=== PATIENT | male | born 1965 | race Caucasian/White ===

== ENCOUNTER → 2016-08-28 | Outpatient (CLI) | payer BC | END | disposition home or self-care (01) | LOC: C.LABPVFM 16:06 | PROVIDERS: ATTEND Family Medicine | DX: Z11.59 Encounter for screening for other viral diseases (principal) ==

== ENCOUNTER → 2016-11-24 | Outpatient (CLI) | payer BC ==
[2016-11-24 15:26] LABS: ALT/SGPT 37 U/L (12-78); AST/SGOT 29 U/L (15-37); BLOOD UREA NITROGEN 13 mg/dl (7-18); CALCIUM 8.8 mg/dl (8.5-10.1); CARBON DIOXIDE 24 mmol/L (21-32); CHLORIDE 107 mmol/L (98-107); GLUCOSE 92 mg/dl (70-99); POTASSIUM 3.8 mmol/L (3.5-5.1); SODIUM 138 mmol/L (136-145)
[2016-11-24 15:31] LABS: ALB/GLOB RATIO 1.2 (0.9-2); ALKALINE PHOSPHATASE 87 U/L (45-117); CHOLESTEROL 121 mg/dl (0-200); CHOLESTEROL/HDL RATIO 3.2; HDL CHOLESTEROL 38 mg/dl; LDL CHOLESTEROL CALCULATED 43 mg/dl; PROSTATE SPECIFIC ANTIGEN 0.843 ng/ml (0.000-4.000); TRIGLYCERIDES 200 mg/dl (0-150); VERY LOW DENSITY LIPOPROT CALC 40 mg/dl
== END | disposition home or self-care (01) ==
LOC: C.LABPVFM 08:26
PROVIDERS: ATTEND Neuromusculoskeletal Medicine & OMM
DX: Z00.00 Encounter for general adult medical examination without abnormal findings (principal); E78.1 Pure hyperglyceridemia; I10 Essential (primary) hypertension; Z12.5 Encounter for screening for malignant neoplasm of prostate

== ENCOUNTER 2022-08-23 18:37 | Inpatient (IN) ==
--- NOTE | 2022-08-23 18:52 | ED Triage Note ---
Date of Service August 23, 2022 History of Present Illness This patient was briefly evaluated while in triage. An abbreviated physical exam was performed. This patient is a 57-year-old Male with past medical history of kidney stones and IBS who presents to the ED for evaluation of abdominal pain that started this morning. He states it feels like a cramping, twisting sensation in his colon. Physical Exam VITALS: Vitals are noted on the nurse's note and reviewed by myself. GENERAL: THis is a 57-year-old male, in no acute distress, well-developed well- nourished. SKIN: The skin was without rashes. EYES: Pupils equal round and reactive to light and accommodation. No icterus. MOUTH: Mucous membranes moist. HEART: Regular rate and rhythm without murmurs gallops or rubs. LUNGS: Clear to auscultation bilaterally without wheezes, rales or rhonchi. ABDOMEN: Positive bowel sounds x 4. Mild diffuse tenderness. NEURO: Patient was alert and oriented to person place and time. Initial orders for labs and / or imaging were placed and patient was placed in the waiting area until a bed is available. Please see further documentation for the full ED course. MDM / Impression Impression Impression: Acute pancreatitis, Elevated lactic acid level
[2022-08-23] MEDS ORDERED: DICYCLOMINE HCL 10 MG/ML 2 ML AMP/VIAL IM ONE (19:13)
[2022-08-23] MEDS ORDERED: ONDANSETRON INJ 2 MG/ML 2 ML VIAL IV STA (19:13)
[2022-08-23] MEDS ORDERED: SODIUM CHLORIDE 0.9% 1000ML 1,000 ML IV ONE (19:13)
--- NOTE | 2022-08-23 19:17 | Emergency Department Note ---
History of Present Illness General Chief complaint: Abdominal Pain Stated complaint: ABDOMINAL PAIN Time Seen by Provider: 08/23/22 19:08 History of Present Illness Maximum Pain Intensity: 8 57-year-old male presents emergency department with onset of right upper and left upper quadrant abdominal pain that is crampy in nature that started this morning. Patient does have a history of IBS. Patient denies fever or anorexia. Patient states crampy abdominal pain that is now diffuse in nature. There is no vomiting no diarrhea no fever. There are no other mitigating or alleviating factors Home Medications Medication Instructions Recorded Confirmed Type omega-3 acid ethyl esters 1 gram 1 cap PO DAILY #30 caps 05/06/19 05/03/20 History capsule phenobarbital 16.2 mg tablet 16.2 mg PO DAILY 05/06/19 05/03/20 History amoxicillin 875 mg-potassium 1 tab PO BID #14 tabs 05/03/20 05/03/20 Rx clavulanate 125 mg tablet (Augmentin) lisinopril 40 mg tablet 40 mg PO DAILY #90 tabs 09/14/21 Rx paroxetine HCl 10 mg tablet (Paxil) 10 mg PO DAILY #90 tabs 09/14/21 Rx oxycodone 5 mg tablet 5 mg PO Q6H PRN pain #10 tabs 06/02/22 Rx tamsulosin 0.4 mg capsule (Flomax) 0.4 mg PO DAILY #10 caps 06/02/22 Rx mirtazapine 45 mg tablet 45 mg PO HS #90 tabs 06/12/22 06/12/22 Rx nebivolol 5 mg tablet (Bystolic) 5 mg PO DAILY #90 tabs 06/12/22 06/12/22 Rx Allergies Allergy/AdvReac Type Severity Reaction Status Date / Time cefdinir [From Omnicef] Allergy Unknown Unknown Verified 05/03/20 13:06 hydrochlorothiazide Allergy Unknown nausea Verified 05/03/20 13:06 sulfamethoxazole Allergy Swelling Verified 05/03/20 13:06 [From Bactrim] of Lip/Tongue/Throat trimethoprim [From Bactrim] Allergy Swelling Verified 05/03/20 13:06 of Lip/Tongue/Throat Past Med/Surg History Medical History Benign essential hypertension Depression Essential hypertriglyceridemia Irritable bowel syndrome Smoker SVT (supraventricular tachycardia) Surgical History H/O cardiac radiofrequency ablation H/O foot surgery Family History Father Colorectal cancer Myocardial infarction Denies family history of Ovarian cancer Prostate cancer Breast cancer Social History Smoking Status: Current every day smoker Tobacco Type: Cigarettes Second Hand Exposure: No; Hx Alcohol Use: Yes Alcohol type: beer Hx Substance Use: No Preferred Language: Pashto marital status: Current Living Situation: Alone current occupational status: employed current occupation: [employer] Feels Safe at Home: Yes caffeine: No Dental Care, Regularly: Yes Physical Activity Frequency: Does not Exercise Seatbelt Use: always Sunscreen Use: No Review of Systems A total of 10 systems reviewed and were otherwise negative Constitutional: no fever Gastrointestinal: + abdominal pain; no nausea and no vomiting Physical Exam Vital Signs Vital Signs - 24 hr 08/23/22 18:37 Temperature 34.7 C L Temperature Source Oral Pulse Rate 110 H Respiratory Rate 20 Respiratory Effort / Characteristics Non-Labored Respiratory Depth Normal Blood Pressure 113/81 Blood Pressure Mean 91 Pulse Oximetry 98 Oxygen Delivery Method Room Air Sepsis Recent Fever Within 48 Hours No Sepsis New/Unexplained Change in Mental Status No Sepsis Action Taken by Nursing Adv Provider Notified GENERAL: Patient is awake alert in no acute distress patient is resting comfortably and showing no signs of anxiety EYES: The conjunctivae are clear. The pupils are round and reactive. EARS, NOSE, MOUTH AND THROAT: The nose is without any evidence of any deformity. Mucous membranes are moist. Tongue is midline. NECK: The neck is nontender and supple. RESPIRATORY: Normal respiratory effort is noted there is no evidence of wheezing rhonchi or rales CARDIOVASCULAR: Regular rate and rhythm noted there no murmurs rubs or gallops normal S1 normal S2. GASTROINTESTINAL: The abdomen is soft. Abdomen is nontender. There is no rebound rigidity or guarding; there are normal bowel sounds BACK: No midline tenderness or or step-off noted range of motion in flexion extension as well as rotation no signs of muscle spasm noted MUSCULOSKELETAL/EXTREMITIES: There is no evidence of gross deformity full range of motion is noted in the hips and shoulders. SKIN: There is no obvious evidence of any rash. There are no petechiae, pallor or cyanosis noted. NEUROLOGIC: Patient is awake alert and oriented x3 strength is symmetric PSYCH: Normal affect Course Reevaluation(s) Reevaluation #1: Patient started on IV fluids, was given IV pain medicine is resting in no distress Time: 21:11 Consultations Consultation #1: This case was discussed with the [facility] who accepts patient for admission for pancreatitis rule out sepsis Time: 21:11 Administered Medications Sodium Chloride (Nss 1000ml) 2,000 mls @ 999 mls/hr IV .Q2H1M ONE Stop: 08/23/22 21:47 Last Admin: 08/23/22 20:22 Dose: 999 mls/hr Documented By: KIAN Piperacillin Sod/Tazobactam Sod (Zosyn) 4.5 gm in 120 mls @ 240 mls/hr IV NOW ONE Stop: 08/23/22 21:15 Last Admin: 08/23/22 20:56 Dose: 240 mls/hr Documented By: KIAN Discontinued Medications Dicyclomine HCl (Dicyclomine Hcl 10 Mg/Ml 2 Ml Amp/Vial) 20 mg IM NOW ONE Stop: 08/23/22 19:14 Last Admin: 08/23/22 19:18 Dose: 20 mg Documented By: KIAN Fentanyl Citrate (Fentanyl Citrate 100 Mcg/2 Ml Vial) 50 mcg IV NOW STA Stop: 08/23/22 20:22 Last Admin: 08/23/22 20:25 Dose: 50 mcg Documented By: KARIME Sodium Chloride (Nss 1000ml) 1,000 mls @ 999 mls/hr IV .Q1H1M ONE Stop: 08/23/22 20:13 Last Infusion: 08/23/22 20:25 Dose: 0 mls/hr Documented By: Admin: 08/23/22 19:24 Dose: 999 mls/hr Documented By: KIAN Ioversol (Optiray 350 100ml) 89 ml IV ONCE ONE Stop: 08/23/22 20:11 Last Admin: 08/23/22 20:14 Dose: 89 ml Documented By: MIKAYLA Ondansetron HCl (Ondansetron Inj 2 Mg/Ml 2 Ml Vial) 4 mg IV NOW STA Stop: 08/23/22 19:14 Last Admin: 08/23/22 19:24 Dose: 4 mg Documented By: KIAN Medical Decision Making Medical Records Attestation: I reviewed the patient's medical records. Home Medications Current Medication List: was personally reviewed by me Laboratory Data Attestation: I reviewed the patient's lab results. Labs interpreted by me show an elevated white blood cell count, elevated lactate, elevated lipase 08/23/22 19:13 08/23/22 19:13 Lab Results 08/23/22 08/23/22 08/23/22 Range/Units 19:13 19:13 19:13 WBC 14.29 H (4.8-10.8) K/ul RBC 3.95 L (4.70-6.10) M/uL Hgb 15.3 (14.0-18.0) g/dl Hct 41.7 L (42.0-52.0) % MCV 105.6 H (80.0-100.0) fL MCH 38.7 H (25.0-34.0) pg MCHC 36.7 H (32.0-36.0) g/dL RDW Std Deviation 52.4 H (36.4-46.3) fL RDW Coeff of Edel 13.7 (11.5-14.5) % Plt Count 169 (130-400) K/uL MPV 10.2 (9.4-12.4) fL Immature Gran % (Auto) 0.3 % Neut % (Auto) 88.0 % Lymph % (Auto) 7.8 % [place] % (Auto) 3.5 % Eos % (Auto) 0.1 % Baso % (Auto) 0.3 % Neut # (Auto) 12.58 H (1.40-6.50) K/uL Lymph # (Auto) 1.11 L (1.2-3.4) K/uL [place] # (Auto) 0.50 (0.11-0.59) K/uL Eos # (Auto) 0.01 (0-0.50) K/uL Baso # (Auto) 0.04 (0-0.2) K/uL Immature Gran # (Auto) 0.05 (0.01-0.20) K/uL Sodium 140 (136-145) mmol/L Potassium 4.1 (3.5-5.1) mmol/L Chloride 106 (98-107) mmol/L Carbon Dioxide 21 (21-32) mmol/L Anion Gap 13 H (3-11) BUN 14 (6-23) mg/dl Creatinine 1.24 (0.6-1.4) mg/dl Est Cr Clr Drug Dosing 65.9 ml/min Est GFR ( Amer) 74.3 ml/min Est GFR (Non-Af Amer) 64.1 ml/min BUN/Creatinine Ratio 11.3 (10-20) Glucose 100 H (70-99(Fasting)) mg/dl Lactate 3.1 H* (0.4-2.0) mmol/L Calcium 8.8 (8.5-10.1) mg/dl Total Bilirubin 1.4 H (0.2-1.0) mg/dl AST 91 H (13-39) U/L ALT 43 (7-52) U/L Alkaline Phosphatase 99 (34-104) U/L Troponin I High Sens 7.5 (0-20) pg/ml Total Protein 7.6 (6.0-8.3) gm/dl Albumin 3.9 (3.4-5.0) gm/dl Globulin 3.7 (2.5-4.0) gm/dl Albumin/Globulin Ratio 1.1 (0.9-2) Lipase 923 H (11-82) U/L Imaging Data My Impression: CT reviewed by me and radiologist report appreciated Radiologist's Impression: Abdomen/Pelvis CT 08/23/22 18:52 CT SCAN OF THE ABDOMEN AND PELVIS WITH IV CONTRAST CLINICAL HISTORY: Generalized abdominal pain. Cramping. COMPARISON STUDY: Abdominal CT dated 06/02/2002. TECHNIQUE: Following the IV administration of 89 cc of Optiray 350, CT scan of the abdomen and pelvis is performed from the lung bases to the proximal femora. Images are reviewed in the axial, sagittal, and coronal planes. IV contrast was administered without complication. A dose lowering technique was utilized adhering to the principles of ALARA. CT DOSE: 293.60 mGy.cm FINDINGS: Lung bases: The heart is normal in size and without pericardial effusion. A 4 mm pleural-based nodule at the left lung base is again seen on image #1. There are scattered calcified granulomas. The lung bases are otherwise clear noting bibasilar scarring/atelectasis. There is a small hiatal hernia. Liver: The contrast-enhanced liver is enlarged, measuring 18.3 cm in length. The liver demonstrates diffusely demonstrate attenuation indicating steatosis. Fatty sparing is seen adjacent to the gallbladder fossa. There is no intrahepatic biliary ductal dilatation. The hepatic veins and portal veins are patent. Gallbladder: Unremarkable. Spleen: Normal in size and attenuation. Pancreas: The pancreas is edematous. There is severe peripancreatic inflammation and fluid consistent with acute pancreatitis. The duct is normal in caliber. There is a geographic focus of decreased perfusion within the pancreatic head measuring approximately 2.3 cm as seen on image #200. There is also focally decreased enhancement of the distal pancreatic body seen on image #153. Foci of pancreatic necrosis are not excluded. No organized peripancreatic fluid collection is identified The splenic vein is patent. There is focal narrowing of the superior mesenteric vein on axial image #164. Fluid is seen tracking inferiorly within the retroperitoneal space. Adrenal glands: Unremarkable. Kidneys: The contrast enhanced kidneys are normal in size and without hydronephrosis. The kidneys enhance symmetrically. There is a punctate nonobstructing left renal calculus. Abdominal vasculature: The abdominal aorta is normal in course and caliber noted is mild atherosclerotic calcification. Bowel: There is no bowel obstruction. The appendix is well-visualized and normal. Wall thickening, edema, and hyperemia of the duodenum is related to adjacent pancreatitis. Peritoneum: No intraperitoneal free air is identified. Trace fluid is tracking along the mesentery and there is also trace pelvic ascites. A fat-containing umbilical hernia is noted. Lymphadenopathy: None. Pelvic viscera: The bladder, prostate gland is enlarged and heterogeneous. The bladder is normal as visualized. There are bilateral fat-containing inguinal hernias. Fluid is seen within the left inguinal hernia. Skeletal structures: No lytic or blastic lesions are seen. IMPRESSION: 1. Severe acute pancreatitis. 2. There are foci of diminished enhancement within the pancreatic head as well as the distal pancreatic body. These are suspicious for pancreatic necrosis. 3. No organized peripancreatic fluid collection is identified. 4. Hepatomegaly and hepatic steatosis. 5. Wall thickening, edema, and hyperemia of the duodenum is related to adjacent pancreatitis. 6. Left-sided nephrolithiasis. 7. Additional findings as above. ACT 112: Negative or not required by law. Electronically signed by: Ryan Welsh M.D. 08/23/2022 8:39 PM [facility] Narrative Medical decision making differential diagnosis includes gastritis gastroenter itis colitis bowel obstruction exacerbation of IBS dehydration appendicitis Plan is to check labs, CT, give IV fluids and medications External medical records reviewed and appreciated Nursing notes were reviewed and appreciated Patient had an elevated white blood cell count elevated lactate, elevated lipase, the concern is for severe pancreatitis with sepsis, the patient was started on a 30 mL/kg IV bolus of saline, the patient was given IV Zofran, Bentyl IM and IV fentanyl, was also empirically started on IV Zosyn Patient is at high risk for intra-abdominal process and septic shock, the patie nt will be admitted to the hospitalist Impression & Plan Acute pancreatitis, Elevated lactic acid level Discharge Plan Visit Data Chief Complaint: Abdominal Pain Stated Complaint: ABDOMINAL PAIN ED Provider: Elias Green Discharge Problem: Acute pancreatitis, Elevated lactic acid level Patient Disposition: Admitted As Inpatient Forms Stand Alone Forms: My [facility] Prescriptions Prescriptions: No Action lisinopril 40 mg tablet 40 mg PO DAILY Qty: 90 3RF paroxetine HCl [Paxil] 10 mg tablet 10 mg PO DAILY Qty: 90 3RF amoxicillin-pot clavulanate [Augmentin] 875-125 mg tablet 1 tab PO BID Qty: 14 0RF omega-3 acid ethyl esters 1 gram capsule 1 cap PO DAILY Qty: 30 phenobarbital 16.2 mg tablet 16.2 mg PO DAILY Label Comments: as directed mirtazapine 45 mg tablet 45 mg PO HS Qty: 90 1RF Bystolic 5 mg tablet 5 mg PO DAILY Qty: 90 1RF oxycodone 5 mg tablet 5 mg PO Q6H PRN (Reason: pain) Qty: 10 0RF tamsulosin [Flomax] 0.4 mg capsule 0.4 mg PO DAILY Qty: 10 0RF Hold Instructions: no longer need it Referrals Referrals: Izzy Damon MD [Primary Care Provider] -
[2022-08-23 19:38] LABS: Basophils # (auto) 0.04 K/uL (0-0.2); Basophils % (auto) 0.3 %; Eosinophils # (auto) 0.01 K/uL (0-0.50); Eosinophils % (auto) 0.1 %; Hematocrit (blood only) 41.7 % (42.0-52.0); Hemoglobin 15.3 g/dl (14.0-18.0); Immature Granulocytes # (auto) 0.05 K/uL (0.01-0.20); Immature Granulocytes % (auto) 0.3 %; Lymphocytes # (auto) 1.11 K/uL (1.2-3.4); Lymphocytes % (auto) 7.8 %; Mean Corpuscular Hemoglobin 38.7 pg (25.0-34.0); Mean Corpuscular Hgb Conc 36.7 g/dL (32.0-36.0); Mean Corpuscular Volume 105.6 fL (80.0-100.0); Mean Platelet Volume 10.2 fL (9.4-12.4); Monocytes % (auto) 3.5 %; Neutrophils # (auto) 12.58 K/uL (1.40-6.50); Platelet Count 169 K/uL (130-400); RDW Coefficient of Variation 13.7 % (11.5-14.5); RDW Standard Deviation 52.4 fL (36.4-46.3); Red Blood Count 3.95 M/uL (4.70-6.10); White Blood Count 14.29 K/ul (4.8-10.8)
[2022-08-23] MEDS ORDERED: SODIUM CHLORIDE 0.9% 1000ML 2,000 ML IV ONE (19:47)
[2022-08-23 19:55] LABS: BUN Creatinine Ratio 11.3 (10-20); Calcium 8.8 mg/dl (8.5-10.1); Creatinine Clr Calc Pharmacy 65.9 ml/min; Est GFR (African American) 74.3 ml/min; Est GFR (Non-African American) 64.1 ml/min; Potassium 4.1 mmol/L (3.5-5.1)
[2022-08-23 20:02] LABS: Troponin I High Sensitivity 7.5 pg/ml (0-20)
[2022-08-23] MEDS ORDERED: OPTIRAY 350 100ml IV ONE (20:10)
[2022-08-23] MEDS ORDERED: fentaNYL citrate 100 MCG/2 ML VIAL IV STA ×2 (20:21→21:23)
[2022-08-23 20:25] LABS: Albumin Globulin Ratio 1.1 (0.9-2); Albumin Level 3.9 gm/dl (3.4-5.0); Bilirubin,Total 1.4 mg/dl (0.2-1.0); Globulin 3.7 gm/dl (2.5-4.0); Total Protein 7.6 gm/dl (6.0-8.3)
--- NOTE | 2022-08-23 20:41 | CT Scan Report ---
CT SCAN OF THE ABDOMEN AND PELVIS WITH IV CONTRAST CLINICAL HISTORY: Generalized abdominal pain. Cramping. COMPARISON STUDY: Abdominal CT dated 06/02/2002. TECHNIQUE: Following the IV administration of 89 cc of Optiray 350, CT scan of the abdomen and pelvi s is performed from the lung bases to the proximal femora. Images are reviewed in the axial, sagittal , and coronal planes. IV contrast was administered without complication. A dose lowering technique wa s utilized adhering to the principles of ALARA. CT DOSE: 293.60 mGy.cm FINDINGS: Lung bases: The heart is normal in size and without pericardial effusion. A 4 mm pleural-based nodule at the left lung base is again seen on image #1. There are scattered calcified granulomas. The lung bases are otherwise clear noting bibasilar scarring/atelectasis. There is a small hiatal hernia. Liver: The contrast-enhanced liver is enlarged, measuring 18.3 cm in length. The liver demonstrates d iffusely demonstrate attenuation indicating steatosis. Fatty sparing is seen adjacent to the gallblad jacob fossa. There is no intrahepatic biliary ductal dilatation. The hepatic veins and portal veins are patent. Gallbladder: Unremarkable. Spleen: Normal in size and attenuation. Pancreas: The pancreas is edematous. There is severe peripancreatic inflammation and fluid consistent with acute pancreatitis. The duct is normal in caliber. There is a geographic focus of decreased per fusion within the pancreatic head measuring approximately 2.3 cm as seen on image #200. There is also focally decreased enhancement of the distal pancreatic body seen on image #153. Foci of pancreatic n ecrosis are not excluded. No organized peripancreatic fluid collection is identified The splenic vein is patent. There is focal narrowing of the superior mesenteric vein on axial image #164. Fluid is se en tracking inferiorly within the retroperitoneal space. Adrenal glands: Unremarkable. Kidneys: The contrast enhanced kidneys are normal in size and without hydronephrosis. The kidneys enh ance symmetrically. There is a punctate nonobstructing left renal calculus. Abdominal vasculature: The abdominal aorta is normal in course and caliber noted is mild atherosclero tic calcification. Bowel: There is no bowel obstruction. The appendix is well-visualized and normal. Wall thickening, e marylu, and hyperemia of the duodenum is related to adjacent pancreatitis. Peritoneum: No intraperitoneal free air is identified. Trace fluid is tracking along the mesentery an d there is also trace pelvic ascites. A fat-containing umbilical hernia is noted. Lymphadenopathy: None. Pelvic viscera: The bladder, prostate gland is enlarged and heterogeneous. The bladder is normal as v isualized. There are bilateral fat-containing inguinal hernias. Fluid is seen within the left inguina l hernia. Skeletal structures: No lytic or blastic lesions are seen. IMPRESSION: 1. Severe acute pancreatitis. 2. There are foci of diminished enhancement within the pancreatic head as well as the distal pancreat ic body. These are suspicious for pancreatic necrosis. 3. No organized peripancreatic fluid collection is identified. 4. Hepatomegaly and hepatic steatosis. 5. Wall thickening, edema, and hyperemia of the duodenum is related to adjacent pancreatitis. 6. Left-sided nephrolithiasis. 7. Additional findings as above. ACT 112: Negative or not required by law. Electronically signed by: Ryan Welsh M.D. 08/23/2022 8:39 PM
[2022-08-23] MEDS ORDERED: PIPERACILLIN/TAZOBACTAM 4.5 GM/120 ML BAG IV ONE (20:46)
--- NOTE | 2022-08-23 21:16 | History & Physical Report ---
Date of Service August 23, 2022 Assessment & Plan (1) Acute pancreatitis: Plan: Elias is a 57 year old man w/ PmHx HTN, essential hypertriglyceridemia, IBS, smoker, SVT s/p ablation, kidney stones admitted for hypertriglyceridemia induced pancreatitis. Acute Pancreatitis: -WBC 14.9, electrolytes, renal function WNL, glucose 100, lactate 3.1. -T bili 1.4, AST 91, ALT 43. -CT A&P w/ severe acute pancreatitis, possible necrosis at pancreatic head and distal body. -Ordered US Liver/RUQ to r/o gallstone etiology. -Triglyceride level 1487 - started patient on insulin gtt, D5/0.5NSS w/ 20meq KCl at 75ml/hr per protocol. -Most likely hypertriglyceridemia induced pancreatitis given past history and current levels. -IV Zofran q4h PRN for nausea. Once nausea controlled can start on clear liquid diet. -AM triglycerides ordered. Essential Hypertriglyceridemia: -As above. Patient would benefit from starting fenofibrate after recovery. HTN: -Continue home lisinopril, nebivolol. IBS: -Noted. Continue to monitor Smoker: -Would benefit from counseling for cessation. -Can add nicotine patch if needed. Depression: -Continue paxil, mirtazapine. DVT Prophylaxis: Lovenox 40mg daily. F/E/N/GI: NPO, can advance when nausea under control. Code status: Full code Dispo: PCU/Tele (2) Essential hypertriglyceridemia: (3) Irritable bowel syndrome: (4) Smoker: History of Present Illness Chief Complaint: Abdominal pain Primary Care Provider: Izzy Damon MD Elias is a 57 year old male w/ PmHx HTN, essential hypertriglyceridemia, IBS, smoker, SVT s/p ablation, kidney stones coming into the ED for abdominal pain. Patient states that early in the morning he started to have epigastric pain that was cramping and painful. He states he took an over the counter medication for the pain which helped subside the pain for 1 hour before it came back with a vengeance in that it was stronger. He states the only nausea he's had has been from the cramping feeling itself, no vomiting. He last ate this morning a cold piece of pizza. He states he did not have the pain prior to waking up this morning. He had 2 episodes of pain similar to this previously although not as intense. The first was in April and lasted about two and half days but pain was controlled with analgesics. He had another episode in the interim between April and this episode that was similar to the one in April. He states that when he was home none of the analgesics he tried throughout the day worked for him and so he decided to come in. He has a past history of smoking, smokes 1/2 pack per day for the past 15 years. He drinks one beer 2-3 nights per week and may drink a few sips of a harder alcoholic beverage some days. He was not aware he had a past history of elevated triglycerides as in 2018 in our records he has a triglyceride level of 608. He denies fevers, chest pain, shortness of breath, cough, headache, constipation, vomiting. He had a little bit of diarrhea earli er. In the ED his WBC 14.29, Hgb 15.3, Platelet 169, electrolytes, kidney function WNL, lactate 3.1, glucose 100, T. bili 1.4, AST 91, ALT 43, Lipase 923. A CT A&P was performed which showed severe acute pancreatitis, wall thickening, edema, hyperemia of duodenum related to adjacent pancreatitis; there are foci of diminished enhancement within pancreatic head as well as the distal pancreatic body suspicious for pancreatic necrosis; hepatomegaly and hepatic steatosis. Allergies Allergy/AdvReac Type Severity Reaction Status Date / Time sulfamethoxazole Allergy Severe Swelling Verified 08/23/22 21:18 [From Bactrim] of Lip/Tongue/Throat trimethoprim [From Bactrim] Allergy Severe Swelling Verified 08/23/22 21:18 of Lip/Tongue/Throat cefdinir [From Omnicef] Allergy Unknown Unknown Verified 08/23/22 21:18 hydrochlorothiazide AdvReac Intermediate nausea Verified 08/23/22 21:18 Home Medications Medication Instructions Recorded Confirmed Type phenobarbital 16.2 mg tablet 16.2 mg PO DAILY PRN NEEDED PER 05/06/19 08/23/22 History PT. paroxetine HCl 10 mg tablet (Paxil) 10 mg PO DAILY #90 tabs 09/14/21 08/23/22 Rx oxycodone 5 mg tablet 5 mg PO Q6H PRN pain #10 tabs 06/02/22 08/23/22 Rx mirtazapine 45 mg tablet 45 mg PO HS #90 tabs 06/12/22 08/23/22 Rx nebivolol 5 mg tablet (Bystolic) 5 mg PO DAILY #90 tabs 06/12/22 08/23/22 Rx lisinopril 40 mg tablet 40 mg PO HS 08/23/22 08/23/22 History Past Med/Surg History Medical History Benign essential hypertension Depression Essential hypertriglyceridemia Irritable bowel syndrome Smoker SVT (supraventricular tachycardia) Surgical History H/O cardiac radiofrequency ablation H/O foot surgery Family History Father Colorectal cancer Myocardial infarction Denies family history of Ovarian cancer Prostate cancer Breast cancer Social History Smoking Status: Current every day smoker Tobacco Type: Cigarettes Second Hand Exposure: No; Hx Alcohol Use: Yes Alcohol type: beer Hx Substance Use: No Preferred Language: Mohawk marital status: Current Living Situation: Alone current occupational status: employed current occupation: [employer] Feels Safe at Home: Yes caffeine: No Dental Care, Regularly: Yes Physical Activity Frequency: Does not Exercise Seatbelt Use: always Sunscreen Use: No Review of Systems Review of Systems: As per HPI Physical Exam Constitutional: WD/WN, vitals as above Eyes: PERRL, conjunctivae normal, anicteric sclerae Neck: trachea midline, no thyromegaly Respiratory: normal respiratory effort, lungs clear to auscultation Cardiovascular: Rate/Rhythm: regular rhythm and + tachycardic Heart Sounds: normal S1 and normal S2 Gastrointestinal (Abdomen): BS+, soft, tender to palpation epigastric region, non-distended. Skin: no rashes, warm and dry Psychiatric: A+Ox3, euthymic affect Results & Data Results & Data ([facility]) Vital Signs (Past 12 Hours) Vital Signs Temp Pulse Resp BP Pulse Ox O2 Del Method 08/23/22 18:37 34.7 C L 110 H 20 113/81 98 Room Air Supervising Physician Co-Signing Physician Notes Patient seen and examined, chart reviewed, case discussed with Dr. Lopez and I agree with the assessment and plan as above. In brief, patient is a 57yo male presenting with hypertriglyceride induced pancreatitis. On exam he is afebrile, tachycardic otherwise HD stable +abdominal pain in epigastric area and bilateral flanks. No bruising or abdominal discoloration +S1/S2, regular, no m/r/g Lungs CTA Labs and images reviewed. WBC=14.29, Lactate=3.1, Tbili=1.4, AST=91 Elevated Lipase = 923 Elevated TG = 1487 CT of the abdomen with severe acute pancreatitis Assessment/Plan- 57yo male with hypertriglyceridemia induced pancreatitis. Severe features include elevated WBC count of 14, elevated HR of 110 as well as elevated Lactate level. -Management with insulin drip per protocol for hypertriglyceride induced pancreatitis - dextrose containing fluid -Judicious fluid administration -Pain control and anti-emetics as needed -Repeat triglyceride level in AM and daily - goal <500 -Going forward patient will need to initiate fenofibrate therapy and a low fat diet -Low threshold for MICU transfer should patient worsen -Remainder of plan as above Resident Activity Tracking Resident Involvement: Resident Care Provided Care Provided: Adult Hospital Medicine
[2022-08-23] MEDS ORDERED: MoRPHine SULFATE 2 MG/ML CARP IV STA ×2 (22:27→23:03)
[2022-08-23] MEDS ORDERED: INSULIN REGULAR 250 UNITS in SODIUM CHLORIDE 0.9% 247.5 ML IV SCH (23:00)
[2022-08-24] MEDS: D5W AND 1/2NSS + 20MEQ KCL 20 MEQ/1,000 ML BAG IV SCH ×2 (00:50→09:42)
[2022-08-24] MEDS ORDERED: ONDANSETRON INJ 2 MG/ML 2 ML VIAL IV PRN (01:59)
[2022-08-24] MEDS ORDERED: D5W AND 1/2NSS 1,000 ML IV SCH (01:59)
[2022-08-24] MEDS ORDERED: ACETAMINOPHEN 325 MG TAB PO PRN (01:59)
[2022-08-24] MEDS: MoRPHine SULFATE 4 MG/ML 1 ML CARP\\VIAL IV PRN ×5 (02:59→21:50)
[2022-08-24] MEDS: DEXTROSE 50% 50 ML SYRINGE IV PRN ×4 (03:02→16:00)
[2022-08-24 03:29] LABS: Appearance Urine Clear (Clear); Bacteria Urine Automated Negative (Negative); Blood Urine Trace (Negative); Color Urine Dark Yellow; Epithelial Cell Urine Auto >30 /lpf (0-5); Glucose Urine UA Negative (Negative); Ketones Urine Trace (Negative); Leukocyte Esterase Urine Trace (Negative); Nitrite Urine Positive (Negative); Protein Urine 2+ (Negative); RBC Urine Automated 0-4 /hpf (0-4); Specific Gravity Urine > 1.045 (1.000-1.030); Urobilinogen Urine Negative (Negative)
--- NOTE | 2022-08-24 03:45 | Billing Data ---
Date of Service August 23, 2022 Coding Level of Care Code 08231 INT INP/OBS CARE
[2022-08-24 03:58] LABS: Bilirubin Urine 2+ (Negative)
[2022-08-24] MEDS: MoRPHine SULFATE 2 MG/ML CARP IV PRN (04:51)
[2022-08-24] MEDS ORDERED: DEXTROSE 10% 1,000 ML IV SCH (06:15)
[2022-08-24 06:34] LABS: Hematocrit (blood only) 41.6 % (42.0-52.0); Mean Corpuscular Hemoglobin 37.8 pg (25.0-34.0); Mean Corpuscular Hgb Conc 36.1 g/dL (32.0-36.0); Mean Corpuscular Volume 104.8 fL (80.0-100.0); Mean Platelet Volume 10.5 fL (9.4-12.4); Platelet Count 119 K/uL (130-400); RDW Coefficient of Variation 13.9 % (11.5-14.5); RDW Standard Deviation 53.5 fL (36.4-46.3); Red Blood Count 3.97 M/uL (4.70-6.10); White Blood Count 9.89 K/ul (4.8-10.8)
[2022-08-24 06:41] LABS: Anion Gap 10 (3-11); BUN Creatinine Ratio 9.4 (10-20); Blood Urea Nitrogen 14 mg/dl (6-23); Calcium 7.5 mg/dl (8.5-10.1); Carbon Dioxide 19 mmol/L (21-32); Chloride 111 mmol/L (98-107); Creatinine Clr Calc Pharmacy 54.9 ml/min; Est GFR (African American) 59.5 ml/min; Est GFR (Non-African American) 51.4 ml/min; Glucose 66 mg/dl (70-99(Fasting)); Sodium 140 mmol/L (136-145); Triglycerides 795 mg/dl (0-150)
--- NOTE | 2022-08-24 06:54 | Ultrasound Report ---
US liver CLINICAL HISTORY: Pancreatitis, question of gallstone origin COMPARISON STUDY: CT of the abdomen and pelvis August 23, 2022. FINDINGS: Hepatic echogenicity is increased. There is no biliary ductal dilatation. The common bile d uct measures 4 mm in caliber. No gallstones are noted. There is no gallbladder wall thickening. Compl ex pericholecystic fluid is noted. This is likely related to acute pancreatitis. Peripancreatic fluid is noted as well as suspected sites of pancreatic necrosis which are better depicted on CT of Febr2022. No well-defined peripancreatic fluid collection is present. There is no right hydronephrosis . A small amount of perihepatic ascites is noted. IMPRESSION: 1. No gallstones or biliary ductal dilatation. 2. Hepatic steatosis. 3. Heterogeneity of the pancreas with peripancreatic fluid consistent with acute pancreatitis, better depicted on CT of August 23, 2022. Complex pericholecystic fluid and a small amount of perihepatic ascites, also likely related to pancreatitis. ACT 112: Negative or not required by law. Electronically signed by: Narayan Perez M.D. 08/24/2022 6:52 AM
[2022-08-24 07:04] LABS: Basophils # (auto) 0.02 K/uL (0-0.2); Basophils % (auto) 0.2 %; Immature Granulocytes # (auto) 0.04 K/uL (0.01-0.20); Immature Granulocytes % (auto) 0.4 %; Monocytes # (auto) 0.32 K/uL (0.11-0.59); Monocytes % (auto) 3.2 %; Neutrophils # (auto) 9.11 K/uL (1.40-6.50); Neutrophils % (auto) 92.2 %
[2022-08-24] MEDS ORDERED: METOPROLOL TARTRATE 25 MG TAB PO SCH (09:00)
[2022-08-24] MEDS ORDERED: ENOXAPARIN INJ 40 MG/0.4 ML SYR SQ SCH (09:00)
[2022-08-24] MEDS: POTASSIUM CHLORIDE / WTR 10 MEQ/100 ML PLCT IV SCH ×4 (09:42→13:58)
[2022-08-24] MEDS: PARoxetine HCL 10 MG TAB PO SCH (09:42)
--- NOTE | 2022-08-24 09:51 | Medical Student Progress Note ---
Date of Service August 24, 2022 Assessment & Plan (1) Acute pancreatitis: Plan: Elias is a 57 year old man w/ PmHx HTN, essential hypertriglyceridemia, IBS, smoker, SVT s/p ablation, kidney stones admitted for resistant abdominal pain aug 23 in pm. (1) Acute pancreatitis: Likely due to high triglycerides which may have be induced through alcohol and phenobarbital combination. -WBC 14.9 aug 23 improved to 9.89; -T bili 1.4, AST 91, ALT 43; monitor q12 hrs -CT A&P w/ severe acute pancreatitis, possible necrosis at pancreatic head and distal body. -US Liver/RUQ r/o gallstone etiology; showed hepatic steatosis. -monitor TG q12h; TG 08/24/2022 700s; -continue monitoring until below 500 -started patient on insulin gtt; D10 75ml/hr; -IV Zofran q4h PRN for nausea. Once nausea controlled can start on clear liquid diet. -morphine sulfate 2 mg iv q3 hr prn last 5AM Essential Hypertriglyceridemia: -As above. Patient would benefit from starting fenofibrate after recovery; -currently using insulin drip until TG levels reach below 500; HTN: -Continue home lisinopril 40mg, nebivolol hold. -substitute with metoprolol tartrate 25mg bid po IBS: -Noted. Continue to monitor -Trial H2 bethanie: famotidine 20mg iv daily Monitor for Alcohol withdrawal symptoms -pt drinks regularly, monitor -thiamine hcl 100mg/folic acid 1 mg in nacl 1011 ml @ 500 ml/hr iv Smoker: -Would benefit from counseling for cessation. -Can add nicotine patch if needed; pt did not desire one Depression: -Continue paxil 10mg po daily; pt able to take. Potassium regulation -monitor bmp q12h -Q8H K+ 20 meq iv while receiving regular insulin drip -K+ 3.5: 08/24/2022; treated with additional bolus of KCl 10mg iv x2; DVT Prophylaxis: Lovenox 40mg daily. F/E/N/GI: NPO, can advance when nausea under control. -d5 in normal saline: 125 ml /hr Code status: Full code Dispo: Med/Surg Admission and Anticipated Discharge Date Admission Date: August 23, 2022 Supervising Attestation Medical Student Supervision Note: I was personally present during medical student patient encounter and independently interviewed and examined the patient and verified the butler history and physical, reviewed labs and image studies, discussed the case with Chris Stevens and agree with the findings and care plan. 57 y/o M here with abdominal pain and diagnosed with acute pancreatitis His abdominal pain persists all across his abdomen and feels nauseous with bending forward. no chest pain, shortness of breath. o/e - in distress from pain. worse with any movement.diaphoretic heart - regular, lung - clear with limited air movement in lower lung field abd - diminished bowel sounds, tenderness across abdomen, + guarding. Acute pancreatitis - sec to hypertriglyceridemia in setting of Risky alcohol use/AUD. NPO, Aggressive fluid resuscitation, pain control, zofran for nausea, famotidine. IV zosyn. follow cbc, cmp Hypertriglyceridemia - started on insulin drip in ED. continue with goal to stop once TG below 500. K replacement added. Will need fibrates once stable Concern of AUD - on AWSS protocol. suspects he was self medicating with phenobarb when off alcohol for abdominal pain at home. MVI. HTN - lisinopril and b bethanie Anxiety - paroxetine and mirtazapine. ? prn phenobarb IBS - has been on librax in the past. follow. Subjective 57 yo male hx of ibs, cardiac ablation, high TGs who presenting to the ED due to abdominal pain resistant to oxycodeine, advil, phenobarbitol and warm compresses. It started in the AM when waking up yesterday and tried decided to go to the ER around 4:30PM. Pt was treated with IV fluids, insulin, D5/D10, potassium, ondansetron, and morphine. Liver US neg for cholelithiasis positive for hepatic steatosis. CT a/p with contrast positive for pancreatic necrosis and hepatic steatosis without any detection of biliary tree abnormalities. Now the patient still feels in pain with a constant 5/10 in the epigastric region and 10/10 if exerting himself. Pt is not nauseous currently, however felt he might vomit if he breaths too deeply as there is some pleuritic chest pain. No blood in stool or urine. Pt is able to drink sips of fluid but he is NPO. Pt has 3-4 drinks per day and has also taken phenobarbital though not everyday. No tremors, confusion, seizures, hallucination Physical Exam Constitutional: Appears uncomfortable, diaphoretic Respiratory: CTA b/l; shallow breathing; Cardiovascular: RRR no MRG, no carotid bruits, no leg edema Gastrointestinal (Abdomen): hypoactive bowel sounds; pain to palpation in epi gastric; mild pain to palpation on the LUQ; skin appears normal wo scars, bruises, or redness Results & Data ([facility]) Vital Signs (Past 12 Hours) Vital Signs Pulse Resp BP Pulse Ox O2 Del Method 08/24/22 07:30 100 H 16 132/95 99 Room Air 08/24/22 03:28 110 H 18 126/88 94 Room Air 08/24/22 02:13 104 H 20 163/120 H 95 Room Air 08/23/22 22:00 104 H 24 141/109 H 96 Room Air
[2022-08-24] MEDS ORDERED: Ativan IV Alcohol Withdrawal--Active Protocol IV PRN (10:16)
[2022-08-24] MEDS ORDERED: LORazepam 2 MG/1 ML VIAL IV PRN ×3 (10:16)
[2022-08-24] MEDS ORDERED: FAMOTIDINE 20 MG in SYRINGE 3 ML IV SCH (10:30)
[2022-08-24] MEDS ORDERED: MULTI-VITAMIN INFUSION 10 ML, THIAMINE HCL 100 MG, FOLIC ACID 1 MG in SODIUM CHLORIDE 0... IV ONE (10:45)
[2022-08-24] MEDS ORDERED: D5NSS + 20MEQ KCL 20 MEQ/1,000 ML BAG IV SCH (12:00)
[2022-08-24] MEDS: FAMOTIDINE 20 MG in SYRINGE 3 ML IV SCH (12:17)
--- NOTE | 2022-08-24 12:31 | Electrocardiogram Report ---
Test Reason : Blood Pressure : / mmHG Vent. Rate : 094 BPM Atrial Rate : 094 BPM P-R Int : 140 ms QRS Dur : 078 ms QT Int : 378 ms P-R-T Axes : 048 012 066 degrees QTc Int : 472 ms Poor data quality, interpretation may be adversely affected Normal sinus rhythm Diffuse Minor Nonspecific ST abnormality Abnormal ECG No previous ECGs available Confirmed by Golden Simons ([id number]) on 08/24/2022 12:31:24 PM Referred By: REFERRED SELF Confirmed By:Golden Simons
[2022-08-24 16:40] LABS: Magnesium 1.6 mg/dl (1.7-2.4)
[2022-08-24 17:04] LABS: Albumin Level 3.4 gm/dl (3.4-5.0); BUN Creatinine Ratio 10.3 (10-20); Bilirubin Direct 2.1 mg/dl (0-0.2); Bilirubin,Total 4.1 mg/dl (0.2-1.0); Calcium 7.7 mg/dl (8.5-10.1); Creatinine Clr Calc Pharmacy 40.1 ml/min; Est GFR (African American) 40.7 ml/min; Est GFR (Non-African American) 35.1 ml/min; Total Protein 6.5 gm/dl (6.0-8.3)
[2022-08-24] MEDS ORDERED: LACTATED RINGER'S 1,000 ML IV SCH (17:30)
--- NOTE | 2022-08-24 18:18 | Billing Data ---
Date of Service August 24, 2022 Coding Level of Care Code INP/OBS CONSULT LVL 5, 80 MIN
--- NOTE | 2022-08-24 18:19 | Critical Care Consultation ---
Date of Consultation August 24, 2022 Assessment & Plan (1) Acute pancreatitis: Elias is a 57 year old male w/ PMHx HTN, essential hypertriglyceridemia, IBS, tobacco use, SVT s/p ablation, and kidney stones presented with abdominal pain and nausea found to have severe pancreatitis likely in the setting of alcohol use and TRGs >1400 admitted for medical management of pancreatitis. Critical care consulted as patient having worsening laboratory values (up trending bilirubin, AST, and Cr), abdominal pain, hypotension, and hematochezia x1. NEURO: Alert and oriented. Patient has a significant drinking history. Consumes 4-5 shots of a liquor a day. On alcohol withdrawal protocol. Thiamine HCl 100mg/folic acid 1 mg in nacl 1011 ml @ 500 ml/hr IV. Monitor for signs of withdrawal PSYCH: Patient has a history of depression - stable on Paxil 10 mg. Patient also on mirtazapine 45 mg at home. Continue home meds. RESP: Satting well on RA. Incentive spirometry. Patient is a long time smoker, at least 8 pack year history. Currently smoking 1/2 ppd. Encourage cessation. CV/VASCULAR: Hypotensive episode - patient had 1 episode of hypotension. Hold home BP meds in the setting of hypotension. Adjust fluids based on BP and fluid status. Continue to monitor. Hypertriglyceridemia - 1400s at time of admit. Improved to <500 on insulin gtt. Will d/c drip at this time. Would benefit from fenofibrate after recovery. Outpatient lipid panel recommended - may need statin therapy. RENAL/LYTES: MARI - Cr 1.24 on admit, now 2.04 despite aggressive fluid resuscitation, continue to monitor Potassium level - monitored closely and repleted as needed while on insulin drip. AM BMP ENDO: Hypoglycemia in the setting of insulin gtt. Drip has be discontinued. Will continue to monitor. Hypoglycemia protocol in place. GI/HPB Acute Pancreatitis - likely a mixed picture with elevated TRGs, heavy alcohol use, and phenobarbital use. CT A&P showed severe acute pancreatitis, possible necrosis at pancreatic head and distal body. US did not show gallstones, did show hepatic steatosis. Patient started on insulin gtt with D10 at 75 mL/hr as TRGs in the >1400 with significant improvement in TRGs levels. Patient's bilir ubin is up-trending along with Cr and AST. Continue to monitor. Zofran PRN for nausea. Pain control with morphine. Elevated bilirubin - up-trending, 1.4 on admission, now 4.1 Transaminitis - up-trending, AST elevated to 91, now 121 IBS - continue to monitor, trial famotidine 20 mg IV daily : Rodriguez in place, Strict Is and Os. ID: Leukocytosis - 14.9 on admit, now resolved, continue to monitor Patient s/p Zosyn x1, no need for abx at this time HEME/ONC: no acute process DVT Prophylaxis: Lovenox 40mg daily. F/E/N/GI: NPO, can advance when nausea under control. LR @ 125 mL/hr Code status: Full code Dispo: Med/Surg Supervising Physician Co-Signing Physician Notes Was the resident-physician during care of patient. I separately evaluated patient for butler portions of the history and the exam. I was present during the critical portion of medical decision making, and I discussed the case with the resident. I generally agree with the findings and plan except for any additions/exceptions noted. 57-year-old male with past medical history of alcohol abuse presented to the hospital with complaints of abdominal pain. Patient does have history of bouts of pancreatitis in the past. He also has IBS He was found to have severe necrotizing pancreatitis along with severely elevated triglycerides greater than 1400 Patient was started on insulin drip as well as D10. He had 1 bout of hypotension as well as hypoglycemia. ICU was consulted because of acidosis as well as worsening creatinine At the time of examination patient's blood pressure was in the 120s systolic, heart rate in the high 80s. He complained of abdominal pain but was not in any respiratory distress. Saturating 94-95% on room air He was making urine. Denies any chest pain denies any shortness of breath. Was complaining of na usea. Asking if he could drink something Constitutional: No acute distress HEENT: EOMI, PERRLA Respiratory system: Decreased air entry bilaterally, no wheeze, rhonchi, positive crackles bilateral lower lobes CVS: S1-S2 positive, no murmurs or gallops Abdomen: Soft, nondistended, positive epigastric as well as right upper quadrant tenderness, no rebound, positive bowel sounds x4 Extremities: +2 pulses bilaterally radialis/ dorsalis pedis, no cyanosis, no edema Neuro: Awake alert oriented x3 Psych: Normal mood and affect G/U: No Rodriguez --Prophylaxis VTE: Lovenox GI: Pepcid Lines: Peripheral Diet: N.p.o. Plan: Patient has a severe necrotizing pancreatitis. Belly is not that tense. He did get 5 L of fluid so far since coming to the hospital. Oxygenation dang he is doing good. Was saturating well on room air Consideration of Rodriguez catheter to monitor intra-abdominal pressure can be made although the bili is not that tense Continue with LR at 125 mill an hour. Monitor BUNs/creatinine Avoid nephrotoxic medication I will hold patient's blood pressure medication as he had an episode of low blood pressure Patient has history of heavy alcohol use, 5 shots of dionna on a daily basis. Continue with CIWA protocol I do not think patient needs ICU care right now. I will continue following the patient on the floor. If there is any worsening I will take him to the ICU Case was discussed with primary team Please note the above document was generated using voice recognition software. It may contain grammatical, syntax or spelling errors.Any formal questions or concerns about the content, text or information contained within the body of this dictation should be directly addressed to the provider for clarification. History of Present Illness Reason for Consultation: Pancreatitis Requesting Physician: Elizabeth Soares MD Attending Physician: Dr. Mancuso History of Present Illness Elias is a 57 year old male w/ PMHx HTN, essential hypertriglyceridemia, IBS, tobacco use, SVT s/p ablation, kidney stones coming into the ED for abdominal pain and nausea found to have severe pancreatitis likely in the setting of alcohol use and TRGs >1400. In the ED WBC 14.29, Hgb 15.3, Platelet 169, electrolytes, kidney function WNL, lactate 3.1, glucose 100, T. bili 1.4, AST 91, ALT 43, Lipase 923. A CT A&P was performed which showed severe acute pancreatitis, wall thickening, edema, hyp eremia of duodenum related to adjacent pancreatitis; there are foci of diminished enhancement within pancreatic head as well as the distal pancreatic body suspicious for pancreatic necrosis; hepatomegaly and hepatic steatosis.Patient was admitted to med/surg. Critical care consulted as patient having worsening laboratory values (up trending bilirubin, AST, and Cr), abdominal pain, hypotension, and hematochezia x1. Patient had one episode of hypotension. He has been aggressively fluid resuscitated. Alcohol withdrawal protocol onboard - patient not requiring PRN Ativan. At the bedside patient is non-toxic appearing, mildly uncomfortable with a BP of 122/77. Notes nausea and continued epigastric abdominal pain. He reports having one episode of hematochezia. Patient reports 2 previous episodes of pain in the past that were similar, but not nearly as severe. He has a past history of tobacco use, smokes 1/2 pack per day for the past 15 years. He reports drinking 4-5 shots of liquor a day, occasional wine or beer. No withdrawal symptoms. Allergies Allergy/AdvReac Type Severity Reaction Status Date / Time sulfamethoxazole Allergy Severe Swelling Verified 08/23/22 21:18 [From Bactrim] of Lip/Tongue/Throat trimethoprim [From Bactrim] Allergy Severe Swelling Verified 08/23/22 21:18 of Lip/Tongue/Throat cefdinir [From Omnicef] Allergy Unknown Unknown Verified 08/23/22 21:18 hydrochlorothiazide AdvReac Intermediate nausea Verified 08/23/22 21:18 Home Medications Medication Instructions Recorded Confirmed Type phenobarbital 16.2 mg tablet 16.2 mg PO DAILY PRN NEEDED PER 05/06/19 08/23/22 History PT. paroxetine HCl 10 mg tablet (Paxil) 10 mg PO DAILY #90 tabs 09/14/21 08/23/22 Rx oxycodone 5 mg tablet 5 mg PO Q6H PRN pain #10 tabs 06/02/22 08/23/22 Rx mirtazapine 45 mg tablet 45 mg PO HS #90 tabs 06/12/22 08/23/22 Rx nebivolol 5 mg tablet (Bystolic) 5 mg PO DAILY #90 tabs 06/12/22 08/23/22 Rx lisinopril 40 mg tablet 40 mg PO HS 08/23/22 08/23/22 History Patient History Medical History Benign essential hypertension Depression Essential hypertriglyceridemia Irritable bowel syndrome Smoker SVT (supraventricular tachycardia) Surgical History H/O cardiac radiofrequency ablation H/O foot surgery Family History Father Colorectal cancer Myocardial infarction Denies family history of Ovarian cancer Prostate cancer Breast cancer Social History Smoking Status: Current some day smoker Tobacco Type: Cigarettes Second Hand Exposure: No; Hx Alcohol Use: Yes Alcohol type: beer Hx Substance Use: No Preferred Language: Bahamian Communication Ability: Effective Vending Machine Coin Collector Required: No Beliefs That Will Affect Care: Spiritual marital status: Current Living Situation: Alone current occupational status: employed current occupation: [employer] Feels Safe at Home: Yes caffeine: No Dental Care, Regularly: Yes Physical Activity Frequency: Does not Exercise Seatbelt Use: always Sunscreen Use: No Assistive Devices: Glasses Review of Systems Review of Systems: As per HPI Physical Exam Physical Exam: Gen: comfortable appearing gentleman in NAD HEENT: AT NC, moist mucous membranes Resp: crackles present right lung otherwise CTAB no wheezing CV: RRR no m/r/g, clinically well perfused GI: soft, non-distended, +BS, diffusely tender mostly in the epigastric region Psych: appropriate mood and affect Neuro: awake, alert Results & Data Results & Data ([place]) Vital Signs (Past 12 Hours) Vital Signs Temp Pulse Resp BP Pulse Ox O2 Del Method 08/24/22 17:51 36.6 C 95 H 18 112/77 95 Room Air 08/24/22 16:51 36.9 C 08/24/22 16:31 83 18 108/81 97 Room Air 08/24/22 16:00 89 20 85/64 L 93 Room Air 08/24/22 15:18 94 H 18 109/82 98 Room Air 08/24/22 13:57 105 H 18 128/90 95 Room Air 08/24/22 13:31 102 H 18 120/92 94 Room Air 08/24/22 12:51 99 H 15 120/92 95 Room Air 08/24/22 10:00 111 H 16 100/80 94 Room Air 08/24/22 07:30 100 H 16 132/95 99 Room Air Laboratory Results 08/24/22 15:59 Diagnostic Findings Abdomen/Pelvis CT 08/23/22 18:52 FINDINGS: Lung bases: The heart is normal in size and without pericardial effusion. A 4 mm pleural-based nodule at the left lung base is again seen on image #1. There are scattered calcified granulomas. The lung bases are otherwise clear noting bibasilar scarring/atelectasis. There is a small hiatal hernia. Liver: The contrast-enhanced liver is enlarged, measuring 18.3 cm in length. The liver demonstrates diffusely demonstrate attenuation indicating steatosis. Fatty sparing is seen adjacent to the gallbladder fossa. There is no intrahepatic biliary ductal dilatation. The hepatic veins and portal veins are patent. Gallbladder: Unremarkable. Spleen: Normal in size and attenuation. Pancreas: The pancreas is edematous. There is severe peripancreatic inflammation and fluid consistent with acute pancreatitis. The duct is normal in caliber. There is a geographic focus of decreased perfusion within the pancreatic head measuring approximately 2.3 cm as seen on image #200. There is also focally decreased enhancement of the distal pancreatic body seen on image #153. Foci of pancreatic necrosis are not excluded. No organized peripancreatic fluid collection is identified The splenic vein is patent. There is focal narrowing of the superior mesenteric vein on axial image #164. Fluid is seen tracking inferiorly within the retroperitoneal space. Adrenal glands: Unremarkable. Kidneys: The contrast enhanced kidneys are normal in size and without hydronephrosis. The kidneys enhance symmetrically. There is a punctate nonobstructing left renal calculus. Abdominal vasculature: The abdominal aorta is normal in course and caliber noted is mild atherosclerotic calcification. Bowel: There is no bowel obstruction. The appendix is well-visualized and normal. Wall thickening, edema, and hyperemia of the duodenum is related to adjacent pancreatitis. Peritoneum: No intraperitoneal free air is identified. Trace fluid is tracking along the mesentery and there is also trace pelvic ascites. A fat-containing umbilical hernia is noted. Lymphadenopathy: None. Pelvic viscera: The bladder, prostate gland is enlarged and heterogeneous. The bladder is normal as visualized. There are bilateral fat-containing inguinal hernias. Fluid is seen within the left inguinal hernia. Skeletal structures: No lytic or blastic lesions are seen. IMPRESSION: 1. Severe acute pancreatitis. 2. There are foci of diminished enhancement within the pancreatic head as well as the distal pancreatic body. These are suspicious for pancreatic necrosis. 3. No organized peripancreatic fluid collection is identified. 4. Hepatomegaly and hepatic steatosis. 5. Wall thickening, edema, and hyperemia of the duodenum is related to adjacent pancreatitis. 6. Left-sided nephrolithiasis. 7. Additional findings as above. Liver Ultrasound 08/24/22 01:59 FINDINGS: Hepatic echogenicity is increased. There is no biliary ductal dilatation. The common bile duct measures 4 mm in caliber. No gallstones are noted. There is no gallbladder wall thickening. Complex pericholecystic fluid is noted. This is likely related to acute pancreatitis. Peripancreatic fluid is noted as well as suspected sites of pancreatic necrosis which are better depicted on CT of August 2022. No well-defined peripancreatic fluid collection is present. There is no right hydronephrosis. A small amount of perihepatic ascites is noted. IMPRESSION: 1. No gallstones or biliary ductal dilatation. 2. Hepatic steatosis. 3. Heterogeneity of the pancreas with peripancreatic fluid consistent with acute pancreatitis, better depicted on CT of August 23, 2022. Complex pericholecystic fluid and a small amount of perihepatic ascites, also likely related to pancreatitis. Resident Activity Tracking Resident Involvement: Resident Care Provided Care Provided: [facility]
[2022-08-24] MEDS: LACTATED RINGER'S 1,000 ML IV SCH (18:41)
[2022-08-24 18:44] LABS: Hematocrit (blood only) 39.2 % (42.0-52.0); Hemoglobin 14.1 g/dl (14.0-18.0)
[2022-08-24 20:35] LABS: Hemoglobin 13.7 g/dl (14.0-18.0)
[2022-08-24] MEDS ORDERED: lisinopril 40 MG TAB PO SCH (21:00)
[2022-08-24] MEDS: MIRTAZAPINE SOLTAB 15 MG PO SCH (21:44)
[2022-08-24 23:01] LABS: Appearance Urine Turbid (Clear); Bacteria Urine Automated Negative (Negative); Blood Urine 2+ (Negative); Color Urine Orange; Epithelial Cell Urine Auto >30 /lpf (0-5); Glucose Urine UA Negative (Negative); Ketones Urine Trace (Negative); Leukocyte Esterase Urine 1+ (Negative); Nitrite Urine Positive (Negative); Protein Urine 2+ (Negative); RBC Urine Automated 0-4 /hpf (0-4); Specific Gravity Urine 1.036 (1.000-1.030); Urobilinogen Urine Negative (Negative); WBC Urine Automated >30 /hpf (0-5)
[2022-08-24 23:02] LABS: Bilirubin Urine 2+ (Negative)
[2022-08-24 23:30] LABS: Potassium Random Urine 105.6 mmol/L
[2022-08-25 01:43] LABS: Hematocrit (blood only) 36.5 % (42.0-52.0); Hemoglobin 12.8 g/dl (14.0-18.0)
[2022-08-25] MEDS: LACTATED RINGER'S 1,000 ML IV SCH ×4 (02:37→20:00)
[2022-08-25] MEDS: MoRPHine SULFATE 4 MG/ML 1 ML CARP\\VIAL IV PRN ×2 (04:33→20:06)
[2022-08-25 06:36] LABS: Hematocrit (blood only) 34.9 % (42.0-52.0); Hemoglobin 12.6 g/dl (14.0-18.0)
[2022-08-25 06:55] LABS: Albumin Level 3.2 gm/dl (3.4-5.0); Bilirubin Direct 1.6 mg/dl (0-0.2); Bilirubin,Total 3.4 mg/dl (0.2-1.0); Calcium 7.7 mg/dl (8.5-10.1); Potassium 4.2 mmol/L (3.5-5.1)
[2022-08-25 07:05] LABS: Hematocrit (blood only) 34.4 % (42.0-52.0); Hemoglobin 12.2 g/dl (14.0-18.0); Mean Corpuscular Hemoglobin 37.8 pg (25.0-34.0); Mean Corpuscular Hgb Conc 35.5 g/dL (32.0-36.0); Mean Corpuscular Volume 106.5 fL (80.0-100.0); Mean Platelet Volume 10.9 fL (9.4-12.4); Platelet Count 89 K/uL (130-400); RDW Coefficient of Variation 14.6 % (11.5-14.5); RDW Standard Deviation 57.1 fL (36.4-46.3); Red Blood Count 3.23 M/uL (4.70-6.10); White Blood Count 8.94 K/ul (4.8-10.8)
[2022-08-25 07:11] LABS: BUN Creatinine Ratio 11.4 (10-20); Est GFR (African American) 28.8 ml/min; Est GFR (Non-African American) 24.8 ml/min; Total Protein 6.1 gm/dl (6.0-8.3)
[2022-08-25 07:20] LABS: Basophils # (auto) 0.02 K/uL (0-0.2); Basophils % (auto) 0.2 %; Eosinophils # (auto) 0.02 K/uL (0-0.50); Eosinophils % (auto) 0.2 %; Immature Granulocytes # (auto) 0.05 K/uL (0.01-0.20); Immature Granulocytes % (auto) 0.6 %; Lymphocytes # (auto) 0.87 K/uL (1.2-3.4); Lymphocytes % (auto) 9.7 %; Monocytes % (auto) 5.6 %; Neutrophils # (auto) 7.48 K/uL (1.40-6.50); Neutrophils % (auto) 83.7 %
[2022-08-25] MEDS ORDERED: LACTATED RINGER'S 500 ML IV ONE (08:45)
[2022-08-25] MEDS ORDERED: FAMOTIDINE 20 MG in SYRINGE 3 ML IV SCH (09:00)
[2022-08-25] MEDS: FOLIC ACID 1 MG in SYRINGE 9.8 ML IV SCH (09:13)
[2022-08-25] MEDS: FAMOTIDINE 20 MG in SYRINGE 3 ML IV SCH (09:13)
[2022-08-25] MEDS: PARoxetine HCL 10 MG TAB PO SCH (09:14)
[2022-08-25] MEDS: THIAMINE HCL 100 MG in SYRINGE 9 ML IV SCH (09:14)
--- NOTE | 2022-08-25 10:13 | Critical Care Progress Note ---
Date of Service August 25, 2022 Assessment & Plan (1) Acute pancreatitis: Plan: Elias is a 57 year old male w/ PMHx HTN, essential hypertriglyceridemia, IBS, tobacco use, SVT s/p ablation, and kidney stones presented with abdominal pain and nausea found to have severe pancreatitis likely in the setting of alcohol use and TRGs >1400 admitted for medical management of pancreatitis. Critical care consulted as patient having worsening laboratory values (up trending bilirubin, AST, and Cr), abdominal pain, hypotension, and hematochezia x1. NEURO: Heavy alcohol use, 4-5 shots of dionna on a daily basis Continue with CIWA protocol PSYCH: History of depression On Paxil 10 mg. Patient also on mirtazapine 45 mg at home. Continue home meds. RESP: -- Current smoker Approximately [id number] smoking history Importance of quitting explained the patient in depth CV/VASCULAR: --Hypotensive episode patient had 1 episode of hypotension. Hold home BP meds in the setting of hypotension -- Hypertriglyceridemia 1400s at time of admit. Improved to <500 on insulin gtt. Start the patient on fenofibrate Restart insulin with dextrose at the triglycerides are persistently greater than 500 RENAL/LYTES: -- MARI Monitor BUNs/creatinine Avoid nephrotoxic medication ENDO: Hypoglycemia in the setting of insulin gtt. Drip has be discontinued. Will continue to monitor. Hypoglycemia protocol in place. GI: --Acute Pancreatitis - likely a mixed picture with elevated TGs, heavy alcohol use CT A&P showed severe acute pancreatitis, possible necrosis at pancreatic head and distal body. US did not show gallstones, did show hepatic steatosis. Patient started on insulin gtt with D10 at 75 mL/hr as TGs in the >1400 with significant improvement in TGs levels -- Transaminitis with elevated bilirubin Likely alcoholic hepatitis Continue to trend --IBS continue to monitor, trial famotidine 20 mg IV daily : Rodriguez in place, Strict Is and Os. ID: Patient does have necrotizing pancreatitis No indication for antibiotics right now HEME/ONC: no acute process --Prophylaxis VTE: Lovenox GI: Pepcid Lines: Peripheral Diet: N.p.o. okay to have ice chips and water Plan: In/out: +3.8 L, urine output 1453 Patient's creatinine is getting elevated. I think it is a combination of necrotizing pancreatitis on top of the hypotensive episode which the patient had. Transaminitis is also combination of alcohol abuse as well as hypotensive epis ode His bilirubin is trending down. We will continue to trend I will give the patient 500 bolus of LR followed by 150 mm of LR Repeat CMP mag phosphorus at 3 PM Triglycerides are all greater than 500 right now. I will repeat them in 12 hours which will be around 7 PM. If it they are still greater than 500 then I will start the patient on insulin drip with D10 Start the patient on fenofibrate, get CPK baseline Ultrasound of the testes for the fullness in the left groin area. Critical care will continue to follow Case was discussed with Dr. Soares Please note the above document was generated using voice recognition software. It may contain grammatical, syntax or spelling errors.Any formal questions or concerns about the content, text or information contained within the body of this dictation should be directly addressed to the provider for clarification. Admission and Anticipated Discharge Date Admission Date: August 23, 2022 Subjective Patient seen and examined at bedside. No acute distress, no adverse events overnight. Patient's saturation was 93-94% on room air He says he feels the same compared to when I saw him last night. Occasional nausea. Has been having ice chips and water without any issues Has had multiple bowel movements from his underlying IBS which are watery. Has been afebrile. No headache, no dysuria Has been urinating well Review of Systems Review of Systems: All systems reviewed & are unremarkable except as noted in Subjective Physical Exam Physical Exam: Constitutional: No acute distress HEENT: EOMI, PERRLA Respiratory system: Decreased air entry bilaterally, no wheeze, rhonchi, positive crackles bilateral lower lobes CVS: S1-S2 positive, no murmurs or gallops Abdomen: Soft, nondistended, positive epigastric as well as right upper quadrant tenderness, no rebound, positive bowel sounds x4 Extremities: +2 pulses bilaterally radialis/ dorsalis pedis, no cyanosis, no edema Neuro: Awake alert oriented x3 Psych: Normal mood and affect G/U: No Rodriguez, fullness around the left inguinal region. Negative cough test Skin: no rashes, warm and dry Lymphatic: no cervical or axillary lymphadenopathy Results & Data Results & Data ([facility]) Vital Signs (Past 12 Hours) Vital Signs Temp Pulse Pulse Resp BP Pulse Ox O2 Del Method 08/25/22 08:58 36.8 C 102 H 18 124/80 Room Air 08/24/22 22:18 105 H 08/25/22 02:34 37 C 97 H 16 129/74 95 Room Air 08/24/22 23:12 37.0 C 94 H 17 105/83 93 Room Air Laboratory Results 08/25/22 06:24 08/25/22 06:24 Coding Level of Care Code 03442 SUB INP/OBS CARE 3/50MIN Diagnoses Acute pancreatitis K85.90
--- NOTE | 2022-08-25 10:28 | Medical Student Progress Note ---
Date of Service August 25, 2022 Assessment & Plan (1) Acute pancreatitis: Plan: Elias is a 57 year old man w/ PmHx HTN, essential hypertriglyceridemia, IBS, smoker, SVT s/p ablation, kidney stones admitted for resistant abdominal pain aug 23 in pm. (1) Acute pancreatitis: Likely due to high triglycerides which may have be induced through alcohol and phenobarbital combination. Daily CBC w/diff, CMP q12h, TGs q12h -WBC 14.9 aug 23; resolved; -T bili 4.1 downtrending; AST 174 uptrending; ALT: 61; ALP 77 08/25/2022; monitor q12 hrs -albumin 3.2 downtrend 08/25/2022 -CT A&P w/ severe acute pancreatitis, possible necrosis at pancreatic head and distal body. -US Liver/RUQ r/o gallstone etiology; showed hepatic steatosis. -monitor TG q12h; -continue monitoring with goal < 500; -IV Zofran q4h PRN for nausea. Once nausea controlled can start on clear liquid diet. -morphine sulfate 4mg IV prn; improving pain; one dose this morning Essential Hypertriglyceridemia: -As above. Patient would benefit from starting fenofibrate after recovery; -currently using insulin drip until TG levels reach below 500; monitor q12h -recheck TG at 7pm to determine whether to restore insulin ggt with potassium -start fenofibrate: cpk baseline 759; Scrotal Swelling/Inguinal swelling This could be due to pacreatic necrosis and the inflammatory mediators spilling into the scrotum from the retroperitoneal region causig edema. This may happen with necrotizing pancreatitis and inguinal swelling results as well (left pancreatic hydrocele). There is some tenderness to palpation and is discolored as purple. -observe, monitor labs and vitals for signs of infection or SIRS -US of the scrotum and linguinal mass; consider CT A/P Acute Kidney Injury: worsening -FENA: 0.2% = pre-renal; cr = 2.7 -continue lactated ringers 150 ml/hr Elevated Creatine Kinase Could be due to effects of underlying acute pancreatitis and immobilization. -continue treating the acute pancreatitis HTN: -hold lisinopril, nebivolol hold. -substitute with metoprolol tartrate 25mg bid po; hold - IBS: -Noted. Continue to monitor -Trial H2 bethanie: famotidine 20mg iv daily -consider dicyclomine Monitor for Alcohol withdrawal symptoms -pt drinks regularly, monitor -thiamine hcl 100mg/folic acid 1 mg in nacl 1011 ml @ 500 ml/hr iv Lowering Hgb: improving Stopped lovenox, started SCDs for ppx. Pt Hgb improving. CBC w diff q12h. Smoker: -Would benefit from counseling for cessation. -Can add nicotine patch if needed; pt did not desire one Depression: -Continue paxil 10mg po daily; pt able to take. DVT Prophylaxis: Lovenox 40mg daily. F/E/N/GI: NPO, can advance when nausea under control. -Lactated Ringers: 150 ml /hr; Code status: Full code Dispo: Med/Surg Admission and Anticipated Discharge Date Admission Date: August 23, 2022 Supervising Attestation Medical Student Supervision Note: I was personally present during medical student patient encounter and independently interviewed and examined the patient and verified the butler history and physical, reviewed labs and image studies, discussed the case with Chris Stevens and agree with the findings and care plan. Abdominal pain better but still with some pain. diarrhea/loose stools since yesterday. Had hypotensive episode last evening o/e - AAOx3, comfortable in bed Heart - RRR Lungs - CTA, no r/r/w abd - soft, BS diminished, improved tenderness Possible sepsis sec to possible necrosis at pancreatic head and distal body in setting of hypertriglyceridemia induced pancreatitis -Overall symptoms better but worsening of labs with rise in creatinine and LFT Continue IV fluids, NPO, IV abx Monitor labs Hypertriglyceridemia TG level 511 this am Fenofibrate added Acute renal failure Likely from Hypotension last evening from sepsis/SIRS Continue IVF Monitor renal function Elevated LFT Sec to SIRS/sepsis No biliary pathology on CT follow LFT Scrotal swelling Check scrotal US Possibly pancreatic hydrocele IBS Trial bentyl On librax and phenobarb at home AUD Continue AWSS protocol Subjective Today pt feels the same however he is moving around more but pain still constant 4-5/10 and sharp 10/10 when exerting himself but not as much pleuritc chest pain. Has not had BRPR since yesterday and noted he had a hx of internal hemorrhoid. Scrotal swelling, penis swelling, and left sided supra inguinal ligamental swelling. Doesn't hurt very much unless palpated but he is concerned. Physical Exam Constitutional: WD/WN, vitals as above Respiratory: normal respiratory effort, lungs clear to auscultation Cardiovascular: RRR, no murmur, no edema Gastrointestinal (Abdomen): normal bowel sounds, soft, nontender, no hepatosplenomegaly Inspection/Auscultation: abdomen normal to inspection palpation left flank tenderness; LLQ mild tenderness to palpation; some tenderness to palpation epigastric. No bruising Genitourinary: no suprapubic tenderness, no CVA tenderness. Left inguinal mass that is tender with discoloration as well as scrotal swelling that is non tender. Results & Data ([facility]) Vital Signs (Past 12 Hours) Vital Signs Temp Pulse Resp BP Pulse Ox O2 Del Method 08/25/22 08:58 36.8 C 102 H 18 124/80 Room Air 08/25/22 02:34 37 C 97 H 16 129/74 95 Room Air 08/24/22 23:12 37.0 C 94 H 17 105/83 93 Room Air
[2022-08-25] MEDS: FENOFIBRATE NANOCRYSTALLIZED 145 MG TABLET PO SCH (11:35)
--- NOTE | 2022-08-25 11:39 | XRay Report ---
XR chest 1V portable HISTORY: Pancreatitis. Shortness of breath. COMPARISON: Abdomen and pelvis CT 08/23/2022. FINDINGS: No pneumothorax. No pleural effusions. Patchy bibasilar airspace opacities are new from the prior study. There are low lung volumes. The heart is normal in size. No evidence for pulmonary cezar a. The upper lung zones are clear. IMPRESSION: There are new patchy bibasilar airspace opacities. These are nonspecific but may represent atelectasi s given the low lung volumes. A pneumonia could also have a similar appearance in the appropriate cli nical setting. ACT 112: Negative or not required by law. Electronically signed by: Darius Eaton M.D. 08/25/2022 11:37 AM
[2022-08-25] MEDS ORDERED: LACTATED RINGER'S 250 ML IV ONE (12:36)
[2022-08-25 16:29] LABS: Appearance Urine Turbid (Clear); Bacteria Urine Automated Negative (Negative); Blood Urine 3+ (Negative); Color Urine Orange; Epithelial Cell Urine Auto >30 /lpf (0-5); Glucose Urine UA Negative (Negative); Ketones Urine Negative (Negative); Leukocyte Esterase Urine Trace (Negative); Nitrite Urine Positive (Negative); Protein Urine 2+ (Negative); Specific Gravity Urine 1.023 (1.000-1.030); Urobilinogen Urine Negative (Negative)
[2022-08-25 16:30] LABS: Bilirubin Urine 1+ (Negative)
[2022-08-25] MEDS ORDERED: METOPROLOL TARTRATE 25 MG TAB PO SCH (16:45)
[2022-08-25 16:50] LABS: Albumin Level 3.3 gm/dl (3.4-5.0); BUN Creatinine Ratio 14.6 (10-20); Bilirubin,Total 3.1 mg/dl (0.2-1.0); Calcium 8.2 mg/dl (8.5-10.1); Creatinine Clr Calc Pharmacy 29.2 ml/min; Est GFR (African American) 27.8 ml/min; Globulin 3.3 gm/dl (2.5-4.0); Magnesium 1.4 mg/dl (1.7-2.4); Phosphorus 3.2 mg/dl (2.5-4.9); Potassium 3.8 mmol/L (3.5-5.1); Total Protein 6.6 gm/dl (6.0-8.3)
[2022-08-25] MEDS ORDERED: Nursing to Pharmacy Communication SCH (17:15)
[2022-08-25 17:18] LABS: Amorphous Sediment Urine Present (None Prsent)
[2022-08-25] MEDS: METOPROLOL TARTRATE 25 MG TAB PO SCH (18:37)
[2022-08-25] MEDS: MAGNESIUM SULFATE / D5W 1 GM/100 ML BAG IV SCH ×3 (18:37→22:02)
--- NOTE | 2022-08-25 18:53 | Ultrasound Report ---
SCROTAL ULTRASOUND CLINICAL HISTORY: left testicular fullness COMPARISON STUDY: CT of the abdomen and pelvis August 23, 2022. TECHNIQUE: Grayscale and color and duplex Doppler sonography of the scrotum was performed. FINDINGS: Right testis measures 3.2 x 1.8 x 3 cm and the left measures 3 x 2.8 x 2.7 cm. Color flow w ithin each testis is symmetric. There is no testicular mass. There is no evidence for epididymitis. A 1.2 cm left epididymal cyst is present. Scrotal wall thickening is present. There are bilateral fat- containing inguinal hernias. Small amount of fluid within the left inguinal hernia is also present. IMPRESSION: 1. Unremarkable sonographic appearance of the testes. 2. No evidence for epididymitis. 3. Scrotal wall edema. 4. Fat-containing bilateral inguinal hernias. In addition, fluid within the left inguinal hernia. ACT 112: Negative or not required by law. Electronically signed by: Narayan Perez M.D. 08/25/2022 6:50 PM
[2022-08-25] MEDS: MIRTAZAPINE SOLTAB 15 MG PO SCH (20:08)
[2022-08-25] MEDS: DICYCLOMINE HCL 10 MG CAP PO SCH (20:08)
[2022-08-26] MEDS: MAGNESIUM SULFATE / D5W 1 GM/100 ML BAG IV SCH (00:03)
[2022-08-26] MEDS: MoRPHine SULFATE 4 MG/ML 1 ML CARP\\VIAL IV PRN (00:22)
[2022-08-26] MEDS: LACTATED RINGER'S 1,000 ML IV SCH ×4 (02:36→19:52)
--- NOTE | 2022-08-26 06:59 | Hospitalist Progress Note ---
Date of Service August 26, 2022 Assessment & Plan (1) Acute pancreatitis: (2) Essential hypertriglyceridemia: (3) Irritable bowel syndrome: (4) SVT (supraventricular tachycardia): (5) H/O cardiac radiofrequency ablation: (6) Heavy alcohol use: (7) Scrotal edema: (8) Depression: (9) Acute kidney injury: Plan Pt is a 57 yo man w/ PMH of HTN, hypertriglyceridemia, IBS, tobacco and alcohol use, SVT s/p ablation, and kidney stones presenting to the hospital for severe abdominal pain. Acute severe necrotizing pancreatitis - likely due to elevated triglycerides in addition to alcohol use - labs upon admission: TG 1487, lipase 923, lactate 3.1 - CTAP showed severe acute pancreatitis, possible necrosis at pancreatic head and distal body, left sided nephrolithiasis - pt originally treated w/ insulin drip which has been discontinued since TG <500 - Symptoms improved. Will stop IVF and advance diet to clears. - continue IV zofran for nausea, morphine for pain control - continue to monitor BMP, TG Anemia - acute blood loss - Hb 15 on admission. Down to 9 this am. - BRBPR episode likely contributed and some from hemodilution - recheck h/h later in the day stable. BRBPR - x1 episode 08/24 - continue to monitor for symptoms and trend Hgb Hypertriglyceridemia - as above - TG downtrended to 454 - continue fenofibrate 145 mg daily Hepatic steatosis - Sec to HyperTG and alcohol use - RUQ US showed hepatic steatosis w/o gallstones - AST/ALT and bili improving Acute kidney injury - no hx of CKD - Cr upon admission 1.4; uptrended to 2.8 - Cr today improved to 1.65 - FeNa= 0.1% pre-renal - d/c fluids after current bag. Sepsis - ruled out - No fever. Neg cultures. IBS - fairly "uncontrolled" w/ medications at home - pt states he needs to see a doctor soon so he can get a "new regimen" for his IBS - has been prescribed phenobarb in the past for anxiety (mostly related to IBS) - symptoms improved today Elevated CK - most likely due to alcohol use - baseline level for monitoring in the setting of fenofibrate monotherapy Inguinal hernia - pt unable to determine if this is new in onset - US showed bilateral inguinal hernias w/ fluid in left hernia - pt will need outpatient surgical follow up HTN - home medications include lisinopril 40 mg and nebivolol 5 mg; continue to hold - continue metoprolol 12.5 mg BID Heavy alcohol use - pt consumes 3-4 drinks per day, mostly in the form of shots of liquor - continue thiamine, folate - Hgb 15.3 upon admission w/ MCV of 105 - Hgb downtrended to 9.1 08/26, repeat Hgb pending Tobacco use -Would benefit from counseling for cessation -Can add nicotine patch if needed; pt did not desire one Depression -Continue paxil 10mg po daily; pt able to take. DVT ppx:lovenox 40mg daily- currently on hold d/t BRBPR FEN:LR at 75 mL/hr, clear liquids Code status:Full Dispo: PCU Admission and Anticipated Discharge Date Admission Date: August 23, 2022 Supervising Physician Co-Signing Physician Notes Resident Physician Supervision Note: I independently interviewed and examined the patient and verified the butler history and physical, reviewed labs and image studies and agree with resident findings and care plan. Subjective Pt is a 57 yo man w/ PMH of HTN, hypertriglyceridemia, IBS, tobacco and alcohol use, SVT s/p ablation, and kidney stones presenting to the hospital for severe abdominal pain. Pt seen at bedside this AM. He states he became slightly delirious last night as he thought he was talking to his son and was at home. Nurse reoriented him and he was fine. Pt says his diarrhea has gotten much better. He denies any further blood in his stools. The epigastric pain that he was experiencing has also subsided; now he says his only abdominal pain is left flank. Pt denies new chest pain, SOB, and leg pains. Review of Systems Review of Systems: All systems reviewed & are unremarkable except as noted in HPI & below Physical Exam Constitutional: NAD. Vitals WNL. Respiratory: CTA bilaterally. No rhonchi, wheezing, or crackles. Non labored breathing. Cardiovascular: RRR. No murmur noted. No LE edema. Gastrointestinal (Abdomen): Soft, +BS. Tender upon deep palpation of RLQ and LLQ. Much less guarding than previous exams. No masses noted. Psychiatric: Alert. Mood and affect congruent. Results & Data Results & Data ([facility]) Vital Signs (Past 12 Hours) Vital Signs Temp Pulse Pulse Resp BP Pulse Ox O2 Del Method 08/25/22 23:03 96 H 08/26/22 02:53 36.6 C 93 H 17 133/86 92 Room Air 08/25/22 23:32 37.0 C 93 H 17 149/90 H 93 Room Air 08/25/22 20:00 Room Air 08/25/22 19:06 36.7 C 105 H 19 151/98 H 95 Room Air Resident Activity Tracking Resident Involvement: Resident Care Provided Care Provided: Adult Hospital Medicine
[2022-08-26] MEDS: THIAMINE HCL 100 MG in SYRINGE 9 ML IV SCH (07:49)
[2022-08-26] MEDS: FOLIC ACID 1 MG in SYRINGE 9.8 ML IV SCH (07:49)
[2022-08-26] MEDS: FAMOTIDINE 20 MG in SYRINGE 3 ML IV SCH (07:50)
[2022-08-26] MEDS: METOPROLOL TARTRATE 25 MG TAB PO SCH ×2 (07:50→19:57)
[2022-08-26] MEDS: DICYCLOMINE HCL 10 MG CAP PO SCH ×2 (07:50→19:57)
[2022-08-26] MEDS: PARoxetine HCL 10 MG TAB PO SCH (07:51)
[2022-08-26] MEDS: FENOFIBRATE NANOCRYSTALLIZED 145 MG TABLET PO SCH (07:51)
--- NOTE | 2022-08-26 07:51 | Critical Care Progress Note ---
Date of Service August 26, 2022 Assessment & Plan (1) Acute pancreatitis: Plan: Elias is a 57 year old male w/ PMHx HTN, essential hypertriglyceridemia, IBS, tobacco use, SVT s/p ablation, and kidney stones presented with abdominal pain and nausea found to have severe pancreatitis likely in the setting of alcohol use and TRGs >1400 admitted for medical management of pancreatitis. Critical care consulted as patient having worsening laboratory values (up trending bilirubin, AST, and Cr), abdominal pain, hypotension, and hematochezia x1. NEURO: Heavy alcohol use, 4-5 shots of dionna on a daily basis Continue with CIWA protocol PSYCH: History of depression On Paxil 10 mg. Patient also on mirtazapine 45 mg at home. Continue home meds. RESP: -- Current smoker Approximately [id number] smoking history Importance of quitting explained the patient in depth CV/VASCULAR: --Hypotensive episode patient had 1 episode of hypotension. -- Hypertriglyceridemia 1400s at time of admit. Improved to <500 on insulin gtt. Start the patient on fenofibrate Restart insulin with dextrose at the triglycerides are persistently greater than 500 RENAL/LYTES: -- MARI --> improving Monitor BUNs/creatinine Avoid nephrotoxic medication ENDO: Hypoglycemia in the setting of insulin gtt. Drip has be discontinued. Will continue to monitor. Hypoglycemia protocol in place. GI: --Acute Pancreatitis - likely a mixed picture with elevated TGs, heavy alcohol use CT A&P showed severe acute pancreatitis, possible necrosis at pancreatic head and distal body. US did not show gallstones, did show hepatic steatosis. Patient started on insulin gtt with D10 at 75 mL/hr as TGs in the >1400 with significant improvement in TGs levels -- Transaminitis with elevated bilirubin Likely alcoholic hepatitis Continue to trend --IBS continue to monitor, trial famotidine 20 mg IV daily : Rodriguez in place, Strict Is and Os. ID: Patient does have necrotizing pancreatitis No indication for antibiotics right now HEME/ONC: no acute process --Prophylaxis VTE: Lovenox GI: Pepcid Lines: Peripheral Diet: N.p.o. okay to have ice chips and water Plan: Chest x-ray shows worsening of dependent atelectasis. Encouraged the patient to do incentive spirometry on a regular basis or more frequently Okay to start the patient on feeding Once the patient is able to eat can discontinue IV fluids Patient's creatinine is improving. Triglycerides are also trending down. Case was discussed with Dr. Soares Critical care will sign off. Please call with any questions Please note the above document was generated using voice recognition software. It may contain grammatical, syntax or spelling errors.Any formal questions or concerns about the content, text or information contained within the body of this dictation should be directly addressed to the provider for clarification. Admission and Anticipated Discharge Date Admission Date: August 23, 2022 Subjective Patient seen and examined at bedside. No acute distress, no advance event overnight Overall he is feeling better. Abdominal pain is better controlled. Urinating well Denies any headache, no nausea vomiting Still having multiple bowel movements Review of Systems Review of Systems: All systems reviewed & are unremarkable except as noted in Subjective Physical Exam Physical Exam: Constitutional: No acute distress HEENT: EOMI, PERRLA Respiratory system: Decreased air entry bilaterally, no wheeze, rhonchi, positive crackles bilateral lower lobes CVS: S1-S2 positive, no murmurs or gallops Abdomen: Soft, nondistended, mild epigastric as well as right upper quadrant tenderness, no rebound, positive bowel sounds x4 Extremities: +2 pulses bilaterally radialis/ dorsalis pedis, no cyanosis, no edema Neuro: Awake alert oriented x3 Psych: Normal mood and affect G/U: No Rodriguez Skin: no rashes, warm and dry Lymphatic: no cervical or axillary lymphadenopathy Results & Data Results & Data ([facility]) Vital Signs (Past 12 Hours) Vital Signs Temp Pulse Pulse Resp BP Pulse Ox O2 Del Method 08/25/22 23:03 96 H 08/26/22 02:53 36.6 C 93 H 17 133/86 92 Room Air 08/25/22 23:32 37.0 C 93 H 17 149/90 H 93 Room Air 08/25/22 20:00 Room Air Laboratory Results 08/26/22 06:47 08/26/22 06:46 Coding Level of Care Code 11077 SUB INP/OBS CARE 3/50MIN Diagnoses Acute pancreatitis K85.90
[2022-08-26 08:18] LABS: Albumin Globulin Ratio 0.9 (0.9-2); Albumin Level 2.5 gm/dl (3.4-5.0); Bilirubin,Total 1.8 mg/dl (0.2-1.0); Calcium 7.8 mg/dl (8.5-10.1); Creatinine Clr Calc Pharmacy 49.5 ml/min; Est GFR (African American) 52.6 ml/min; Est GFR (Non-African American) 45.4 ml/min; Globulin 2.9 gm/dl (2.5-4.0); Magnesium 2.4 mg/dl (1.7-2.4); Phosphorus 2.3 mg/dl (2.5-4.9); Potassium 3.6 mmol/L (3.5-5.1); Total Protein 5.4 gm/dl (6.0-8.3)
--- NOTE | 2022-08-26 08:24 | XRay Report ---
XR chest 1V portable CLINICAL HISTORY: f/u COMPARISON STUDY: Chest radiograph August 25, 2022. FINDINGS: There is no pneumothorax or pleural effusion. Bibasilar airspace opacities have mildly prog ressed. Cardiomediastinal silhouette is normal. There is no evidence for pulmonary edema. IMPRESSION: Progression of bibasilar opacities which favor pneumonia or aspiration pneumonitis. ACT 112: Negative or not required by law. Electronically signed by: Narayan Perez M.D. 08/26/2022 8:22 AM
[2022-08-26] MEDS ORDERED: POTASSIUM PHOS 3 MMOL/1 ML INFUSION IV STA (08:39)
[2022-08-26] MEDS ORDERED: POTASSIUM CHLORIDE / WTR 10 MEQ/100 ML PLCT IV SCH (08:45)
[2022-08-26 08:57] LABS: Hematocrit (blood only) 25.1 % (42.0-52.0); Hemoglobin 9.1 g/dl (14.0-18.0); Mean Corpuscular Hemoglobin 37.8 pg (25.0-34.0); Mean Corpuscular Hgb Conc 36.3 g/dL (32.0-36.0); Mean Corpuscular Volume 104.1 fL (80.0-100.0); Mean Platelet Volume 11.2 fL (9.4-12.4); Platelet Count 79 K/uL (130-400); RDW Coefficient of Variation 14.4 % (11.5-14.5); RDW Standard Deviation 54.5 fL (36.4-46.3); Red Blood Count 2.41 M/uL (4.70-6.10); White Blood Count 7.33 K/ul (4.8-10.8)
[2022-08-26] MEDS: POTASSIUM CHLORIDE / WTR 10 MEQ/100 ML PLCT IV SCH ×2 (09:06→10:04)
[2022-08-26] MEDS ORDERED: POTASSIUM PHOSPHATE 30 MMOL in SODIUM CHLORIDE 0.9% 500 ML IV ONE (09:30)
[2022-08-26 14:39] LABS: Hematocrit (blood only) 28.7 % (42.0-52.0); Hemoglobin 10.2 g/dl (14.0-18.0)
[2022-08-26 18:54] LABS: Adenovirus F 40/41 PCR Not Detected (NotDetected); Astrovirus PCR Not Detected (NotDetected); Campylobacter PCR Not Detected (NotDetected); Cryptosporidium PCR Not Detected (NotDetected); Cyclospora cayetanensis PCR Not Detected (NotDetected); Entamoeba histolytica PCR Not Detected (NotDetected); Enteroaggregative E.coli(EAEC) Not Detected (NotDetected); Enteropathogenic E.coli (EPEC) Not Detected (NotDetected); Enterotoxigenic E.coli (ETEC) Not Detected (NotDetected); Giardia lamblia PCR Not Detected (NotDetected); Norovirus GI/GII PCR Not Detected (NotDetected); Plesiomonas shigelloides PCR Not Detected (NotDetected); Rotavirus A PCR Not Detected (NotDetected); Salmonella PCR Not Detected (NotDetected); Sapovirus PCR Not Detected (NotDetected); Shiga-like Toxin E.coli (STEC) Not Detected (NotDetected); Shigella/Enteroinvasive E.coli Not Detected (NotDetected); Vibrio cholerae PCR Not Detected (NotDetected); Vibrio species PCR Not Detected (NotDetected); Yersinia enterocolitica PCR Not Detected (NotDetected)
[2022-08-26] MEDS: MIRTAZAPINE SOLTAB 15 MG PO SCH (19:57)
[2022-08-27] MEDS: MoRPHine SULFATE 2 MG/ML CARP IV PRN (06:18)
[2022-08-27 06:33] LABS: Hematocrit (blood only) 26.7 % (42.0-52.0); Hemoglobin 9.3 g/dl (14.0-18.0); Mean Corpuscular Hemoglobin 37.5 pg (25.0-34.0); Mean Corpuscular Hgb Conc 34.8 g/dL (32.0-36.0); Mean Corpuscular Volume 107.7 fL (80.0-100.0); Mean Platelet Volume 10.6 fL (9.4-12.4); Platelet Count 96 K/uL (130-400); RDW Coefficient of Variation 14.7 % (11.5-14.5); RDW Standard Deviation 57.6 fL (36.4-46.3); Red Blood Count 2.48 M/uL (4.70-6.10); White Blood Count 6.78 K/ul (4.8-10.8)
[2022-08-27 06:47] LABS: Albumin Globulin Ratio 0.9 (0.9-2); Albumin Level 2.9 gm/dl (3.4-5.0); BUN Creatinine Ratio 20.3 (10-20); Bilirubin,Total 1.8 mg/dl (0.2-1.0); Calcium 8.2 mg/dl (8.5-10.1); Creatinine Clr Calc Pharmacy 69.3 ml/min; Est GFR (African American) 78.9 ml/min; Est GFR (Non-African American) 68.1 ml/min; Globulin 3.3 gm/dl (2.5-4.0); Magnesium 2.4 mg/dl (1.7-2.4); Potassium 3.6 mmol/L (3.5-5.1); Total Protein 6.2 gm/dl (6.0-8.3)
[2022-08-27] MEDS ORDERED: POTASSIUM PHOS 3 MMOL/1 ML INFUSION IV ONE (06:53)
[2022-08-27] MEDS ORDERED: POTASSIUM PHOSPHATE 30 MMOL in SODIUM CHLORIDE 0.9% 500 ML IV ONE (07:30)
--- NOTE | 2022-08-27 07:41 | Hospitalist Progress Note ---
Date of Service August 27, 2022 Assessment & Plan (1) Acute pancreatitis: (2) Essential hypertriglyceridemia: (3) Irritable bowel syndrome: (4) SVT (supraventricular tachycardia): (5) H/O cardiac radiofrequency ablation: (6) Heavy alcohol use: (7) Scrotal edema: (8) Depression: (9) Acute kidney injury: Plan Pt is a 57 yo man w/ PMH of HTN, hypertriglyceridemia, IBS, tobacco and alcohol use, SVT s/p ablation, and kidney stones presenting to the hospital for severe abdominal pain. Acute severe necrotizing pancreatitis - likely due to elevated triglycerides in addition to alcohol use - labs upon admission: TG 1487, lipase 923, lactate 3.1 - CTAP showed severe acute pancreatitis, possible necrosis at pancreatic head and distal body, left sided nephrolithiasis - pt originally treated w/ insulin drip which has been discontinued since TG <500 - symptoms improved; advance diet as tolerated - continue IV zofran for nausea, morphine for pain control Anemia - acute blood loss - Hb 15 on admission; h/h stable at 9 - BRBPR episode likely contributed and some from hemodilution - Outpatient GI evaluation for colonoscopy BRBPR - x1 episode 08/24 - no further episodes Hypertriglyceridemia - as above - TG downtrended to 198 - continue fenofibrate 145 mg daily Hepatic steatosis - secondary to hyperTG and alcohol use - RUQ US showed hepatic steatosis w/o gallstones - AST/ALT and bili improving Acute kidney injury - no hx of CKD - Cr upon admission 1.4; uptrended to 2.8 - FeNa= 0.1% pre-renal - Cr improved to 1.18 Sepsis - ruled out - No fever; neg cultures IBS - fairly "uncontrolled" w/ medications at home - pt states he needs to see a doctor soon so he can get a "new regimen" for his IBS - has been prescribed phenobarb in the past for anxiety (mostly related to IBS) - symptoms improved today Elevated CK - most likely due to alcohol use - baseline level for monitoring in the setting of fenofibrate monotherapy Inguinal hernia - pt unable to determine if this is new in onset - US showed bilateral inguinal hernias w/ fluid in left hernia - pt will need outpatient surgical follow up HTN - home medications include lisinopril 40 mg and nebivolol 5 mg - increased metoprolol to 25 mg BID - restarted home lisinopril 40 mg d/t elevated BP and recovered kidney function Heavy alcohol use - pt consumes 3-4 drinks per day, mostly in the form of shots of liquor - continue thiamine, folate Tobacco use - Would benefit from counseling for cessation - Can add nicotine patch if needed; pt did not desire one Depression -Continue paxil 10mg po daily DVT ppx:lovenox 40mg daily- currently on hold d/t BRBPR FEN:full liquids, will advance to low fat if tolerated Code status:Full Dispo: PCU, plan for d/c tomorrow if diet tolerated Admission and Anticipated Discharge Date Admission Date: August 23, 2022 Supervising Physician Co-Signing Physician Notes Resident Physician Supervision Note: I independently interviewed and examined the patient and verified the butler history and physical, reviewed labs and image studies and agree with resident findings and care plan. Subjective Pt is a 57 yo man w/ PMH of HTN, hypertriglyceridemia, IBS, tobacco and alcohol use, SVT s/p ablation, and kidney stones presenting to the hospital for severe abdominal pain. Pt seen at bedside this AM. He states he did not sleep well last night due to not feeling tired. However, his diarrhea and abdominal pain have improved. He has had no further bloody stools. He denies new symptoms of chest pain, SOB, and leg pains. Review of Systems Review of Systems: All systems reviewed & are unremarkable except as noted in HPI & below Physical Exam Constitutional: NAD. Vitals WNL. Eyes: no conjunctival abnormality Respiratory: CTA bilaterally. No rhonchi, wheezing, or crackles. Non labored breathing. Cardiovascular: RRR. No murmur noted. No LE edema. Gastrointestinal (Abdomen): Nontender, +BS. No masses noted. Skin: no rashes, warm and dry Psychiatric: Alert. Mood and affect congruent. Results & Data Results & Data ([facility]) Vital Signs (Past 12 Hours) Vital Signs Temp Pulse Pulse Resp BP Pulse Ox O2 Del Method 08/26/22 23:00 96 H 08/27/22 04:12 152/87 H 08/27/22 06:15 163/94 H 08/27/22 02:34 37.1 C 85 17 176/106 H 95 Room Air 08/26/22 23:04 36.8 C 96 H 18 169/98 H 96 Room Air 08/26/22 20:00 Room Air 08/26/22 19:55 37.0 C 93 H 18 170/104 H 95 Room Air Resident Activity Tracking Resident Involvement: Resident Care Provided Care Provided: Adult Hospital Medicine
[2022-08-27] MEDS: lisinopril 40 MG TAB PO SCH (08:54)
[2022-08-27] MEDS: FAMOTIDINE 20 MG TAB PO SCH (08:54)
[2022-08-27] MEDS: DICYCLOMINE HCL 10 MG CAP PO SCH ×2 (08:54→20:01)
[2022-08-27] MEDS: FENOFIBRATE NANOCRYSTALLIZED 145 MG TABLET PO SCH (08:54)
[2022-08-27] MEDS: PARoxetine HCL 10 MG TAB PO SCH (08:54)
[2022-08-27] MEDS: METOPROLOL TARTRATE 25 MG TAB PO SCH ×2 (08:54→20:01)
[2022-08-27] MEDS: FOLIC ACID 1 MG TAB PO SCH (08:55)
[2022-08-27] MEDS: THIAMINE HCL 100 MG TAB PO SCH (08:55)
[2022-08-27] MEDS: POT PHOSPHATE MONOBASIC W/ SOD TAB PO SCH ×3 (11:45→17:50)
[2022-08-27 12:27] LABS: Hematocrit (blood only) 26.9 % (42.0-52.0); Hemoglobin 9.5 g/dl (14.0-18.0)
[2022-08-27] MEDS ORDERED: LABETALOL HCL IV 5 MG/ML 20ML IV ONE ×2 (17:11→21:30)
[2022-08-27] MEDS: MIRTAZAPINE SOLTAB 15 MG PO SCH (20:01)
[2022-08-28] MEDS: lisinopril 40 MG TAB PO SCH (07:48)
[2022-08-28] MEDS: METOPROLOL TARTRATE 25 MG TAB PO SCH (07:48)
[2022-08-28] MEDS: FAMOTIDINE 20 MG TAB PO SCH (07:49)
[2022-08-28] MEDS: PARoxetine HCL 10 MG TAB PO SCH (07:49)
[2022-08-28] MEDS: DICYCLOMINE HCL 10 MG CAP PO SCH (07:49)
[2022-08-28] MEDS: THIAMINE HCL 100 MG TAB PO SCH (07:49)
[2022-08-28] MEDS: FOLIC ACID 1 MG TAB PO SCH (07:49)
[2022-08-28] MEDS: FENOFIBRATE NANOCRYSTALLIZED 145 MG TABLET PO SCH (07:49)
--- NOTE | 2022-08-28 09:58 | Discharge Summary ---
Date of Service August 28, 2022 Admission HPI Per Admitting Provider Elias is a 57 year old male w/ PmHx HTN, essential hypertriglyceridemia, IBS, smoker, SVT s/p ablation, kidney stones coming into the ED for abdominal pain. Patient states that early in the morning he started to have epigastric pain that was cramping and painful. He states he took an over the counter medication for the pain which helped subside the pain for 1 hour before it came back with a vengeance in that it was stronger. He states the only nausea he's had has been from the cramping feeling itself, no vomiting. He last ate this morning a cold piece of pizza. He states he did not have the pain prior to waking up this morning. He had 2 episodes of pain similar to this previously although not as intense. The first was in April and lasted about two and half days but pain was controlled with analgesics. He had another episode in the interim between April and this episode that was similar to the one in April. He states that when he was home none of the analgesics he tried throughout the day worked for him and so he decided to come in. He has a past history of smoking, smokes 1/2 pack per day for the past 15 years. He drinks one beer 2-3 nights per week and may drink a few sips of a harder alcoholic beverage some days. He was not aware he had a past history of elevated triglycerides as in 2018 in our records he has a triglyceride level of 608. He denies fevers, chest pain, shortness of breath, cough, headache, constipation, vomiting. He had a little bit of diarrhea earlier. In the ED his WBC 14.29, Hgb 15.3, Platelet 169, electrolytes, kidney function WNL, lactate 3.1, glucose 100, T. bili 1.4, AST 91, ALT 43, Lipase 923. A CT A&P was performed which showed severe acute pancreatitis, wall thickening, edema, hyperemia of duodenum related to adjacent pancreatitis; there are foci of di minished enhancement within pancreatic head as well as the distal pancreatic body suspicious for pancreatic necrosis; hepatomegaly and hepatic steatosis. Admission Exam Per Admitting Provider Constitutional: WD/WN, vitals as above Eyes: PERRL, conjunctivae normal, anicteric sclerae Neck: trachea midline, no thyromegaly Respiratory: normal respiratory effort, lungs clear to auscultation Cardiovascular: Rate/Rhythm: regular rhythm and + tachycardic Heart Sounds: normal S1 and normal S2 Gastrointestinal (Abdomen): BS+, soft, tender to palpation epigastric region, non-distended. Skin: no rashes, warm and dry Psychiatric: A+Ox3, euthymic affect Principal Diagnosis acute pancreatitis Discharge Exam Constitutional NAD. BP elevated, otherwise vitals WNL. Eyes no conjunctival abnormality Respiratory CTA bilaterally. No rhonchi, wheezing, or crackles. Non labored breathing. Cardiovascular RRR. No murmur noted. Trace, non pitting edema in bilateral LE. Gastrointestinal (Abdomen) +BS, nontender throughout. No masses noted. Psychiatric Alert. Mood and affect congruent. Discharge Data Allergies Allergy/AdvReac Type Severity Reaction Status Date / Time sulfamethoxazole Allergy Severe Swelling Verified 08/23/22 21:18 [From Bactrim] of Lip/Tongue/Throat trimethoprim [From Bactrim] Allergy Severe Swelling Verified 08/23/22 21:18 of Lip/Tongue/Throat cefdinir [From Omnicef] Allergy Unknown Unknown Verified 08/23/22 21:18 hydrochlorothiazide AdvReac Intermediate nausea Verified 08/23/22 21:18 Consultations 08/23/22 21:01 ED Decision to Admit Stat Ordered Studies 08/23/22 18:52 CT abd pelvis IV con only Stat 08/24/22 01:59 US abdomen [US liver] Routine 08/25/22 16:48 US scrotum/testicle Stat Abdomen/Pelvis CT 08/23/22 18:52 CT SCAN OF THE ABDOMEN AND PELVIS WITH IV CONTRAST CLINICAL HISTORY: Generalized abdominal pain. Cramping. COMPARISON STUDY: Abdominal CT dated 06/02/2002. TECHNIQUE: Following the IV administration of 89 cc of Optiray 350, CT scan of the abdomen and pelvis is performed from the lung bases to the proximal femora. Images are reviewed in the axial, sagittal, and coronal planes. IV contrast was administered without complication. A dose lowering technique was utilized adhering to the principles of ALARA. CT DOSE: 293.60 mGy.cm FINDINGS: Lung bases: The heart is normal in size and without pericardial effusion. A 4 mm pleural-based nodule at the left lung base is again seen on image #1. There are scattered calcified granulomas. The lung bases are otherwise clear noting bibasilar scarring/atelectasis. There is a small hiatal hernia. Liver: The contrast-enhanced liver is enlarged, measuring 18.3 cm in length. The liver demonstrates diffusely demonstrate attenuation indicating steatosis. Fatty sparing is seen adjacent to the gallbladder fossa. There is no intrahepatic biliary ductal dilatation. The hepatic veins and portal veins are patent. Gallbladder: Unremarkable. Spleen: Normal in size and attenuation. Pancreas: The pancreas is edematous. There is severe peripancreatic inflammation and fluid consistent with acute pancreatitis. The duct is normal in caliber. There is a geographic focus of decreased perfusion within the pancreatic head measuring approximately 2.3 cm as seen on image #200. There is also focally decreased enhancement of the distal pancreatic body seen on image #153. Foci of pancreatic necrosis are not excluded. No organized peripancreatic fluid collection is identified The splenic vein is patent. There is focal narrowing of the superior mesenteric vein on axial image #164. Fluid is seen tracking inferiorly within the retroperitoneal space. Adrenal glands: Unremarkable. Kidneys: The contrast enhanced kidneys are normal in size and without hydronephrosis. The kidneys enhance symmetrically. There is a punctate nonobstructing left renal calculus. Abdominal vasculature: The abdominal aorta is normal in course and caliber noted is mild atherosclerotic calcification. Bowel: There is no bowel obstruction. The appendix is well-visualized and normal. Wall thickening, edema, and hyperemia of the duodenum is related to adjacent pancreatitis. Peritoneum: No intraperitoneal free air is identified. Trace fluid is tracking along the mesentery and there is also trace pelvic ascites. A fat-containing umbilical hernia is noted. Lymphadenopathy: None. Pelvic viscera: The bladder, prostate gland is enlarged and heterogeneous. The bladder is normal as visualized. There are bilateral fat-containing inguinal hernias. Fluid is seen within the left inguinal hernia. Skeletal structures: No lytic or blastic lesions are seen. IMPRESSION: 1. Severe acute pancreatitis. 2. There are foci of diminished enhancement within the pancreatic head as well as the distal pancreatic body. These are suspicious for pancreatic necrosis. 3. No organized peripancreatic fluid collection is identified. 4. Hepatomegaly and hepatic steatosis. 5. Wall thickening, edema, and hyperemia of the duodenum is related to adjacent pancreatitis. 6. Left-sided nephrolithiasis. 7. Additional findings as above. ACT 112: Negative or not required by law. Electronically signed by: Ryan Welsh M.D. 08/23/2022 8:39 PM Liver Ultrasound 08/24/22 01:59 US liver CLINICAL HISTORY: Pancreatitis, question of gallstone origin COMPARISON STUDY: CT of the abdomen and pelvis August 23, 2022. FINDINGS: Hepatic echogenicity is increased. There is no biliary ductal dilatation. The common bile duct measures 4 mm in caliber. No gallstones are noted. There is no gallbladder wall thickening. Complex pericholecystic fluid is noted. This is likely related to acute pancreatitis. Peripancreatic fluid is noted as well as suspected sites of pancreatic necrosis which are better depicted on CT of August 2022. No well-defined peripancreatic fluid collection is present. There is no right hydronephrosis. A small amount of perihepatic ascites is noted. IMPRESSION: 1. No gallstones or biliary ductal dilatation. 2. Hepatic steatosis. 3. Heterogeneity of the pancreas with peripancreatic fluid consistent with acute pancreatitis, better depicted on CT of August 23, 2022. Complex pericholecystic fluid and a small amount of perihepatic ascites, also likely related to pancreatitis. ACT 112: Negative or not required by law. Electronically signed by: Narayan Perez M.D. 08/24/2022 6:52 AM Chest X-Ray 08/25/22 10:24 XR chest 1V portable HISTORY: Pancreatitis. Shortness of breath. COMPARISON: Abdomen and pelvis CT 08/23/2022. FINDINGS: No pneumothorax. No pleural effusions. Patchy bibasilar airspace opacities are new from the prior study. There are low lung volumes. The heart is normal in size. No evidence for pulmonary edema. The upper lung zones are clear. IMPRESSION: There are new patchy bibasilar airspace opacities. These are nonspecific but may represent atelectasis given the low lung volumes. A pneumonia could also have a similar appearance in the appropriate clinical setting. ACT 112: Negative or not required by law. Electronically signed by: Darius Eaton M.D. 08/25/2022 11:37 AM Scrotum Ultrasound 08/25/22 16:48 SCROTAL ULTRASOUND CLINICAL HISTORY: left testicular fullness COMPARISON STUDY: CT of the abdomen and pelvis August 23, 2022. TECHNIQUE: Grayscale and color and duplex Doppler sonography of the scrotum was performed. FINDINGS: Right testis measures 3.2 x 1.8 x 3 cm and the left measures 3 x 2.8 x 2.7 cm. Color flow within each testis is symmetric. There is no testicular mass. There is no evidence for epididymitis. A 1.2 cm left epididymal cyst is present. Scrotal wall thickening is present. There are bilateral fat-containing inguinal hernias. Small amount of fluid within the left inguinal hernia is also present. IMPRESSION: 1. Unremarkable sonographic appearance of the testes. 2. No evidence for epididymitis. 3. Scrotal wall edema. 4. Fat-containing bilateral inguinal hernias. In addition, fluid within the left inguinal hernia. ACT 112: Negative or not required by law. Electronically signed by: Narayan Perez M.D. 08/25/2022 6:50 PM Chest X-Ray 08/26/22 07:50 XR chest 1V portable CLINICAL HISTORY: f/u COMPARISON STUDY: Chest radiograph August 25, 2022. FINDINGS: There is no pneumothorax or pleural effusion. Bibasilar airspace opacities have mildly progressed. Cardiomediastinal silhouette is normal. There is no evidence for pulmonary edema. IMPRESSION: Progression of bibasilar opacities which favor pneumonia or aspiration pneumonitis. ACT 112: Negative or not required by law. Electronically signed by: Narayan Perez M.D. 08/26/2022 8:22 AM Hospital Course (1) Acute pancreatitis: (2) Essential hypertriglyceridemia: (3) Irritable bowel syndrome: (4) SVT (supraventricular tachycardia): (5) H/O cardiac radiofrequency ablation: (6) Heavy alcohol use: (7) Scrotal edema: (8) Depression: (9) Acute kidney injury: Plan Pt is a 57 yo man w/ PMH of HTN, hypertriglyceridemia, IBS, tobacco and alcohol use, SVT s/p ablation, and kidney stones presenting to the hospital for severe abdominal pain. Acute severe necrotizing pancreatitis - likely due to elevated triglycerides in addition to alcohol use - labs upon admission: TG 1487, lipase 923, lactate 3.1 - CTAP showed severe acute pancreatitis, possible necrosis at pancreatic head and distal body, left sided nephrolithiasis - pt originally treated w/ insulin drip which has been discontinued since TG <500 - symptoms improved; low fat diet tolerated well - pt instructed to avoid alcohol, follow low fat diet, stay hydrated, and continue fenofibrate Anemia - Hb 15 on admission; h/h stable in - - BRBPR episode likely contributed and hemodilution - Outpatient GI evaluation for colonoscopy BRBPR - x1 episode 08/24 - no further episodes - consider evaluation as outpatient if symptoms recur Hypertriglyceridemia - as above - TG downtrended to 198 - continue fenofibrate 145 mg daily upon discharge Hepatic steatosis - secondary to hyperTG and alcohol use - RUQ US showed hepatic steatosis w/o gallstones - AST/ALT and bili improved upon admission Acute kidney injury - no hx of CKD - Cr upon admission 1.4; uptrended to 2.8 - FeNa= 0.1% pre-renal - Cr improved to 0.90 upon discharge Sepsis - ruled out - No fever; neg cultures IBS - fairly "uncontrolled" w/ medications at home - pt states he needs to see a doctor soon so he can get a "new regimen" for his IBS - has been prescribed phenobarb in the past for anxiety (mostly related to IBS) - symptoms improved while hospitalized - recommended daily miralax to help with stool management - f/u outpatient to discuss further management Elevated CK - most likely due to alcohol use - baseline level for monitoring in the setting of fenofibrate monotherapy Inguinal hernia - pt unable to determine if this is new in onset - US showed bilateral inguinal hernias w/ fluid in left hernia - outpatient surgical follow up HTN - home medications include lisinopril 40 mg and nebivolol 5 mg - pt on metoprolol while hospitalized - restart home medications as above Heavy alcohol use - pt consumes 3-4 drinks per day, mostly in the form of shots of liquor - thiamine, folate while hospitalized- no withdrawal symptoms - pt advised to discontinue alcohol use Tobacco use - Would benefit from continued counseling for cessation - Can add nicotine patch if needed; pt did not desire one Depression -Continue paxil 10mg po daily DVT ppx:lovenox 40mg daily (which was held d/t BRBPR) FEN:low fat diet tolerated well Code status:Full Dispo: home Total Time Total Time Spent Total Time Spent (In Minutes): as per attending attestation Discharge Plan Discharge Items Patient Disposition: Home - Self-Care Reason For Visit: PANCREATITIS Discharge Diagnosis: acute pancreatitis Activity: Per Instructions section Non-emergency contact: Primary Care Provider and [employer] Call non-emergency contact if: you have any medication questions, your symptoms worsen and your pain is worsening Follow-up/Referrals: Turner Asher, DO [Surgeon] - (f/u bilateral inguinal hernias diagnosed while hospitalized Dr. Yancey office to schedule and reach ouit to patient) Izzy Damon MD [Primary Care Provider] - 08/31/22 11:30 am Diet: Low Fat Addtl Attending Provider Instructions: You were admitted to the hospital for acute pancreatitis caused by high triglycerides and alcohol use. Your kidneys were also found to be in a state of injury. You were treated with pain medications and IV fluids. By discharge, your triglycerides have decreased and your kidney function had recovered. Upon discharge, it is recommended that you follow a low fat diet and avoid alcohol in order to let your pancreas heal. You had also noticed scrotal swelling during your hospitalization. An ultrasound was done that showed inguinal hernias on both sides of your pelvis/scrotum. Your blood pressure was elevated during your hospital stay. While this isn't uncommon for people to have high blood pressure while in the hospital and normal blood pressure when outside of the hospital, you should be further evaluated in the outpatient setting. Your primary care doctor may need to make changes to your home blood pressure regimen. A discharge summary will be sent to your primary care physician to ensure continuity of care. Please bring this discharge summary with you to your next office appointment so that your provider can review it at that time. Medications: Your medication list has been reviewed and reconciled upon discharge to ensure accuracy and continuity of care. An updated list of all your medications is included with your hospital discharge paperwork. Please review this list closely and make note of any changes to your medications. - You should continue the triglyceride medication, fenofibrate, that you were started on in the hospital. This is one 145 mg tablet per day. - Otherwise, you can continue your medications at home as before your ho spitalization. Follow up appointments: - Make a follow up appointment with your PCP within the next week. It is very important that you follow up with them shortly after discharge from the hospital. - You should also make a follow up appointment to see a general surgeon to discuss further steps in management of your inguinal hernias. - Keep all of your follow up appointments as already scheduled. If you cannot make an appointment, notify your provider. CONTACT YOUR PRIMARY CARE PROVIDER if you experience any of the following: - Recurrent abdominal pain - Difficulty following your treatment plan - Difficulty taking any of your medications CALL 911 OR GO TO THE EMERGENCY DEPARTMENT if you experience any of the foll owing: - Sudden, severe abdominal pain or nausea/vomiting - Severe chest pain or chest pain that radiates to your jaw or arm - Sudden, severe shortness of breath or difficulty breathing Pending Studies at Discharge: No Stand-Alone Forms: My [facility] [employer], Smoking Cessation Medications and DC Order Prescriptions: New fenofibrate nanocrystallized 145 mg Tablet 145 mg PO QAM Qty: 30 1RF Continued paroxetine HCl [Paxil] 10 mg tablet 10 mg PO DAILY Qty: 90 3RF phenobarbital 16.2 mg tablet 16.2 mg PO DAILY PRN (Reason: NEEDED PER PT.) Label Comments: as directed mirtazapine 45 mg tablet 45 mg PO HS Qty: 90 1RF Bystolic 5 mg tablet 5 mg PO DAILY Qty: 90 1RF lisinopril 40 mg tablet 40 mg PO HS Discontinued oxycodone 5 mg tablet 5 mg PO Q6H PRN (Reason: pain) Qty: 10 0RF Discharge Orders: Discharge Order (Routine); Ordered 08/28/22 Ordered By: Gilma Bui/Other Patient Handouts: Triglycerides, Understanding Pancreatitis Admission Data Admit Date/Time: 08/23/22 22:27 Attending Provider: Stephan Mckeon Admit Provider: Herberth Lopez Primary Care Provider: Izzy Damon Other Providers: Beatriz Giang ; Elizabeth Soares Other Interventions: Discharge Summary Assessment (RN) Last Done: 08/28/22 13:51 Supervising Physician Co-Signing Physician Notes I personally examined the patient and verified all butler points of history and exam, discussed case, and agree with decision making with Dr Maldonado feeling better eating OK IBS ongoing feels up to going home vitals noted nad heent nc at mmm breathing unlabored no accessory muscles good effort skin no rashes no pallor or icterus EtOH and triglyceride induced pancreatitis - safe/stable for home. fibrate. EtOH cessation. close outpt follow up. Trial of miralax 17-34g daily for IBS. otherwise as above Resident Activity Tracking Resident Involvement: Resident Care Provided Care Provided: Adult Hospital Medicine
[2022-08-28 10:28] LABS: Hematocrit (blood only) 27.8 % (42.0-52.0); Hemoglobin 9.9 g/dl (14.0-18.0); Mean Corpuscular Hemoglobin 38.1 pg (25.0-34.0); Mean Corpuscular Hgb Conc 35.6 g/dL (32.0-36.0); Mean Corpuscular Volume 106.9 fL (80.0-100.0); Mean Platelet Volume 10.7 fL (9.4-12.4); Platelet Count 112 K/uL (130-400); RDW Coefficient of Variation 14.5 % (11.5-14.5); RDW Standard Deviation 56.4 fL (36.4-46.3); White Blood Count 7.91 K/ul (4.8-10.8)
[2022-08-28 11:02] LABS: Albumin Globulin Ratio 0.9 (0.9-2); Albumin Level 3.1 gm/dl (3.4-5.0); BUN Creatinine Ratio 17.8 (10-20); Bilirubin,Total 1.6 mg/dl (0.2-1.0); Calcium 8.4 mg/dl (8.5-10.1); Creatinine Clr Calc Pharmacy 90.8 ml/min; Est GFR (African American) 109.5 ml/min; Est GFR (Non-African American) 94.5 ml/min; Globulin 3.4 gm/dl (2.5-4.0); Magnesium 2.3 mg/dl (1.7-2.4); Phosphorus 2.7 mg/dl (2.5-4.9); Total Protein 6.5 gm/dl (6.0-8.3)
[2022-08-28] MEDS ORDERED: POTASSIUM CHLORIDE CRTAB 20 MEQ TABCR PO STA (11:09)
--- NOTE | 2022-08-28 16:57 | Billing Data ---
Date of Service August 28, 2022 Coding Level of Care Code HOSP INP/OBS DISCH 30 MIN/LESS
[2022-08-28 19:02] LABS: Uric Acid, Random Urine 45 mg/dL
== END 2022-08-28 14:48 | disposition home or self-care (01) | DRG 439 ==
LOC: ED 18:37 → SUATTDRO 22:27 → EDINP 22:27 → 2E 08-24 17:45